=== PATIENT | female | born 1945 | race Caucasian/White ===

== ENCOUNTER → 2017-10-19 09:30 | Outpatient (CLI) | payer MEDICARE, BC, SELFPAY | PROVIDERS: Visit Provider Student in an Organized Health Care Education/Training Program | DX: M17.0 Bilateral primary osteoarthritis of knee (principal); S93.402A Sprain of unspecified ligament of left ankle, initial encounter; X50.1XXA Overexertion from prolonged static or awkward postures, initial encounter; Y93.01 Activity, walking, marching and hiking | CPT/HCPCS: 99213 ==

== ENCOUNTER 2017-11-30 15:24 | Outpatient (REF) | payer MEDICARE, BC, SELFPAY | END 2017-11-30 15:44 | LOC: NCHCN 15:24 | PROVIDERS: Visit Provider Family Medicine | DX: N39.0 Urinary tract infection, site not specified (principal) | CPT/HCPCS: 87077; 87086; 87186 ==

== ENCOUNTER → 2018-01-04 13:28 | Outpatient (BNVA) | payer MEDICARE, BC, SELFPAY | PROVIDERS: Visit Provider Student in an Organized Health Care Education/Training Program | DX: M17.11 Unilateral primary osteoarthritis, right knee (principal); I10 Essential (primary) hypertension | CPT/HCPCS: 20610; 99214; J1040 ==

== ENCOUNTER → 2018-03-22 14:18 | Outpatient (BNVA) | payer OTHER, SELFPAY | PROVIDERS: Visit Provider Student in an Organized Health Care Education/Training Program | DX: M17.11 Unilateral primary osteoarthritis, right knee (principal); M25.561 Pain in right knee; G89.29 Other chronic pain; I10 Essential (primary) hypertension | CPT/HCPCS: 99212; 99213 ==

== ENCOUNTER 2018-06-07 09:18 | Outpatient (REF) | payer OTHER, SELFPAY ==
[2018-06-07 14:20] LABS: Cholesterol 131 mg/dL (50-200); Glucose 113 mg/dL (70-100); HDL Cholesterol 41 mg/dL (40-60); LDL CHOLESTEROL 47 mg/dL (<100); Triglyceride 132 mg/dL (30-150)
== END 2018-06-07 09:38 ==
LOC: NCHCN 09:18
PROVIDERS: PCP Family Medicine; Visit Provider Family Medicine
DX: I10 Essential (primary) hypertension (principal); Z13.1 Encounter for screening for diabetes mellitus; Z13.6 Encounter for screening for cardiovascular disorders
CPT/HCPCS: 80061; 82947; 83721

== ENCOUNTER 2018-06-21 01:16 | Outpatient (CLI) | payer OTHER, SELFPAY ==
--- NOTE | 2018-06-21 11:32 | DI.MAMMO_ITS ---
SYMPTOM/DIAGNOSIS: SCREENING, Z12.31 MAMMOGRAMS: Mammograms were interpreted according to the usual protocol including computer analysis with CAD system, tomosynthesis and C view imaging. Comparison is made with prior examinations. Breast density, Category B. No suspicious masses or microcalcifications are seen. There is no definite evidence of malignancy. IMPRESSION: Negative mammogram. Routine screening is recommended. Category 1. MQSA ASSESSMENT OF FINDINGS: Negative. Category 1. Patient will receive a letter notifying them of these results. BI-RADS category B. There are scattered areas of fibroglandular density.
== END 2018-06-21 01:36 ==
PROVIDERS: PCP Family Medicine; Visit Provider Family Medicine
DX: Z12.31 Encounter for screening mammogram for malignant neoplasm of breast (principal)
CPT/HCPCS: 77063; 77067

== ENCOUNTER 2018-08-02 15:01 | Outpatient (CLI) | payer OTHER, BC, SELFPAY ==
--- NOTE | 2018-08-02 14:54 | DI.RAD_ITS ---
SYMPTOM/DIAGNOSIS: MEDIAL LEFT ANKLE PAIN LEFT ANKLE: Three views. No bone or joint abnormality is identified. There is a spur at the plantar surface of the calcaneus. Soft tissues are grossly unremarkable. IMPRESSION: No acute abnormality.
== END 2018-08-02 15:21 ==
PROVIDERS: PCP Family Medicine; Visit Provider Student in an Organized Health Care Education/Training Program
DX: M25.572 Pain in left ankle and joints of left foot (principal); S93.422A Sprain of deltoid ligament of left ankle, initial encounter; I10 Essential (primary) hypertension; X50.9XXA Other and unspecified overexertion or strenuous movements or postures, initial encounter
CPT/HCPCS: 99214; 73610

== ENCOUNTER 2018-08-11 00:32 | Outpatient (CLI) | payer OTHER, BC, SELFPAY ==
--- NOTE | 2018-08-11 14:58 | DI.MRI_ITS ---
SYMPTOM/DIAGNOSIS: LT ANKLE SPRAIN MRI LEFT ANKLE: The anterior and posterior talofibular ligaments are intact. The posterior tibiofibular ligament is also intact. There is no evidence of a calcaneofibular tear. Note is made of mild increased signal along the fibers of the deltoid ligament suggesting a mild sprain. The superficial fibers are intact. The spring ligament is intact. The Achilles tendon is intact. The flexor tendons are unremarkable. The extensor tendons are normal. The peroneal tendons are intact. The tibialis anterior is unremarkable. The tibialis posterior has a small quantity of fluid posterior and flexor digitorum longus tendon sheaths. The tendons themselves appear intact. The musculature is unremarkable. There is no joint effusion. The sinus tarsi is well maintained. The tarsal tunnel is intact. The plantar fascia reveals a small plantar calcaneal enthesophyte. The plantar fascia is unremarkable. Note is made of mild patchy focal marrow edema and cystic change in the navicular and middle and lateral cuneiforms as well as the bases of the second through fourth metatarsals likely on a degenerative basis. There is mild osteophyte formation in some of the tarsal and metatarsal joints Mild subcutaneous edema is noted medially over the malleolus. SUMMARY: Mild subcutaneous edema is noted over the medial malleolus. Note is made of a small fluid collection in the tibialis posterior and in the flexor digitorum longus tendon sheaths suggesting tenosynovitis. The tendons are intact. There is a mild sprain of the deep fibers of the deltoid ligament. Degenerative changes are noted as described above.
--- NOTE | 2018-08-11 16:08 | DI.VRAD_ITS ---
EXAM: MR Left Lower Extremity Without Contrast, Ankle EXAM DATE/TIME: 08/11/2018 2:51 PM CLINICAL HISTORY: 72 years old, female; Patient HX: Left ankle sprain. Rolled ankle, pain medial. TECHNIQUE: Imaging protocol: MR of the Left ankle without contrast. COMPARISON: CR XR ANKLE LT COMPLETE 08/02/2018 3:04 PM FINDINGS: LIGAMENTS: Anterior talofibular: Unremarkable. No tear. Posterior talofibular: Unremarkable. No tear. Anterior tibiofibular: Unremarkable. No tear. Posterior tibiofibular: Unremarkable. No tear. Calcaneofibular: Unremarkable. No tear. Deltoid: There is mild increased signal along the fibers of the deep portion of the deltoid ligament, suggesting mild sprain. The superficial fibers appear intact. Spring: Unremarkable. No tear. TENDONS: Achilles: Unremarkable. No tear. Flexors: No tear. Extensors: Unremarkable. No tear. Peroneal: Unremarkable. No tear. Tibialis anterior: Unremarkable. No tear. Tibialis posterior: Small fluid is present in the tibialis posterior and flexor digitorum longus tendon sheaths. The tendons themselves are intact. Muscles: Unremarkable. Fluid: No joint effusion. Sinus tarsi: Unremarkable. Tarsal tunnel: Unremarkable. Plantar fascia: A small plantar calcaneal enthesophyte is again present. The plantar fascia appears unremarkable. Cartilage: Unremarkable. Bones/joints: Mild patchy foci of marrow edema and cystic change present in the navicular and middle and lateral cuneiforms, as well as at the bases of the second and fourth metatarsals, likely degenerative. Mild osteophyte formation is present about some tarsometatarsal joints. Soft tissues: There is mild subcutaneous edema medially over the malleolus. IMPRESSION: 1. Mild subcutaneous edema over the medial malleolus. 2. Small fluid in the tibialis posterior flexor digitorum longus tendon sheaths, suggesting tenosynovitis, with the tendons intact. 3. Mild sprain of the deep fibers of the deltoid ligament. 4. Degenerative changes as described. Dictated and Authenticated by: Red Sullivan MD. Ordering:MEJIA Aguilar MD
== END 2018-08-11 00:52 ==
PROVIDERS: PCP Family Medicine; Visit Provider Student in an Organized Health Care Education/Training Program
DX: S93.402A Sprain of unspecified ligament of left ankle, initial encounter (principal); M77.32 Calcaneal spur, left foot; R60.0 Localized edema; M65.872 Other synovitis and tenosynovitis, left ankle and foot
CPT/HCPCS: 73721

== ENCOUNTER → 2018-08-16 09:58 | Outpatient (BNVA) | payer OTHER, SELFPAY | PROVIDERS: PCP Family Medicine; Referring Provider Family Medicine; Visit Provider Student in an Organized Health Care Education/Training Program | DX: S93.422A Sprain of deltoid ligament of left ankle, initial encounter (principal); M17.11 Unilateral primary osteoarthritis, right knee; M76.822 Posterior tibial tendinitis, left leg | CPT/HCPCS: 99213 ==

== ENCOUNTER 2018-11-25 10:41 | Outpatient (REF) | payer OTHER, SELFPAY ==
[2018-11-25 22:30] LABS: Anion Gap 8.6 mmol/L (3-11); BUN 24 mg/dL (7-18); CO2 27.4 mmol/L (21.0-32.0); CREATININE 0.96 mg/dL (0.55-1.02); Calcium 8.9 mg/dL (8.5-10.1); Chloride 102 mmol/L (98-107); Estimated GFR 57.29 (mL/min/1.73m2); Glucose 113 mg/dL (70-100); Potassium 4.6 mmol/L (3.5-5.1); Sodium 138 mmol/L (136-145)
== END 2018-11-25 11:01 ==
LOC: NCHCO 10:41
PROVIDERS: PCP Family Medicine; Visit Provider Internal Medicine
DX: I10 Essential (primary) hypertension (principal); E78.5 Hyperlipidemia, unspecified
CPT/HCPCS: 80048

== ENCOUNTER 2019-09-13 07:37 | Outpatient (CLI) | payer OTHER, SELFPAY ==
[2019-09-15 08:00] LABS: COVID-19 RT-PCR Result NEGATIVE (Negative)
== END 2019-09-13 07:57 ==
PROVIDERS: Student in an Organized Health Care Education/Training Program; PCP Family Medicine; Visit Provider Podiatrist
DX: M17.11 Unilateral primary osteoarthritis, right knee (principal); Z01.818 Encounter for other preprocedural examination
CPT/HCPCS: U0003

== ENCOUNTER 2019-09-16 07:30 | Day surgery (SDC) | payer OTHER, SELFPAY ==
--- NOTE | 2019-09-16 07:23 | W.PM.HP.N ---
Date of service: 09/16/19 Time of Service: 07:24 History of Present Illness History of Present Illness Chief Complaint: Symptomatic left bunion deformity Narrative: 73-year-old female with increasing pain associated with a left bunion deformity that is no longer amenable to palliative touch. Shoe gear, ambulation and daily activities aggravate the bunion and is reached a point she is seeking surgical correction. [facility] Medical History History of neck pain (Acute) Hx of fibrocystic disease of breast (Acute) Hypertension (Chronic) Surgical History History of carpal tunnel release of both wrists (Acute) History of repair of hiatal hernia (Acute) Hx of colonoscopy (Chronic) Hx of hysterectomy (Chronic) Social History Smoking/Tobacco Use Status: Never Alcohol Intake: current Alcohol Intake frequency: holidays/special occasions only Drug use: Never Substance use type: does not use Do you feel safe at home: Yes Meds Home Medications and Allergies Home Medications Medication Instructions Recorded Confirmed Type amitriptyline 10 mg PO HS 07/16/12 09/13/19 History calcium carbonate-vitamin D3 1 ea PO DAILY 07/23/12 09/13/19 History multivitamin with iron-mineral 1 ea PO DAILY 07/23/12 09/13/19 History [Compete] Atorvastatin Calcium 20 mg PO HS tab-cap 08/31/17 09/13/19 History lisinopril 40 mg PO DAILY tab-cap 08/31/17 09/13/19 History metoprolol tartrate 25 mg PO DAILY tab-cap 08/31/17 09/13/19 History meloxicam 7.5 mg tablet 7.5 mg PO BID #60 tab 05/11/19 09/13/19 Rx nitroglycerin [Nitrostat] 0.4 mg SUBLINGUAL Q5-15M PRN 09/13/19 09/13/19 History spironolactone 25 mg PO DAILY 09/13/19 09/13/19 History Allergies Allergy/AdvReac Type Severity Reaction Status Date / Time Penicillins Allergy Severe Anaphylaxsi Unverified 09/13/19 14:34 s Sulfa (Sulfonamide Allergy Intermediate Hives Unverified 09/13/19 14:34 Antibiotics) Exam Narrative Exam Narrative: 73-year-old white female looking her stated age in no acute distress. Head is normocephalic, eyes PERRLA, hearing is adequate. Uvula is midline airway looks assessable no suspicious oral lesions were noted. Heart had regular rate and rhythm without gallops rubs or murmurs. Lung powers were clear. Abdomen was soft. Bowel sounds x4. Peripheral pulses are manually palpable at the ankles minus 2 out of 4. Capillary fill is under 3 seconds to all toes. Calves were soft to palpation no findings of DVT. Moderate HAV deformity is appreciated without crepitance. Dorsal extension was slightly limited at end range of motion. Sesamoids were nontender to palpation. A large medial bump is noted with periarticular tenderness. No crepitance was observed. Remaining exam was otherwise grossly benign at this time. IMPression: Symptomatic left HAV deformity. Plan: And is being brought to the OR for surgical reduction of her left bunion deformity. She understands she will have a osteotomy that potential complications include pain, scarring, infection, stiffness of the joint, nonunion, malunion, delayed union, problems with the hardware potentially requiring removal. Revisional procedures were discussed all questions were answered. No promises made to final outcome of procedure. Informed consent has been obtained. COVID-19 Screening Have you,or household,traveled outside [place] in last 14 days?: No Had IN PERSON contact w/suspected or confirmed C-19 person: No
[2019-09-16 07:45] VITALS: BP 131/86; PULSE 80; RESP 16; TEMP 36.6; O2SAT 100
[2019-09-16] MEDS: Lactated Ringers 1,000 ML 80 ML IV (08:10)
[2019-09-16] MEDS: CLINDAMYCIN 600 MG/50 ML BAG 100 MG IVPB (08:52)
[2019-09-16] MEDS: Lidocaine 1% Pres-Free 5 ML VIAL (09:12)
[2019-09-16] MEDS: Bupivacaine 0.5% Pres-Free 30 ML VIAL (09:12)
[2019-09-16] MEDS: Dexamethasone 4 MG/ML VIAL (09:52)
[2019-09-16 10:10] VITALS: BP 92/55; PULSE 75; RESP 16; TEMP 35.8; O2SAT 95
--- NOTE | 2019-09-16 10:10 | W.PM.DSUDISC ---
Discharge Plan Disposition Patient Disposition: HOME Condition: Good Discharge Details Reason For Visit: EUGENIA Attending Provider: Juan Lamb Primary Care Provider: Jackie Guerrero Home Meds and New Rx's Prescriptions: New ibuprofen 600 mg tablet 600 mg PO Q6H PRN (Reason: pain and inflamation) Qty: 40 RF: 0 hydrocodone-acetaminophen [[place]] 5-325 mg tablet 1 tab PO Q6H PRN (Reason: pain) Qty: 7 RF: 0 Continued Atorvastatin Calcium 20 MG tablet 20 mg PO HS RF: 0 lisinopril 40 MG tablet 40 mg PO DAILY RF: 0 metoprolol tartrate 25 MG tablet 25 mg PO DAILY RF: 0 meloxicam 7.5 mg tablet 7.5 mg PO BID Qty: 60 RF: 6 amitriptyline 10 MG tablet 10 mg PO HS RF: 0 Compete 1 EACH tablet 1 ea PO DAILY RF: 0 calcium carbonate-vitamin D3 1 EACH tablet 1 ea PO DAILY RF: 0 nitroglycerin [Nitrostat] 0.4 mg Tablet, Sublingual 0.4 mg SUBLINGUAL Q5-15M PRNRF: 0 spironolactone 25 mg Tablet 25 mg PO DAILY RF: 0 Discharge Instructions Activity:: Elevate Remove Dressings/Wound Care:: Do Not Remove Shower/Bathe:: Cover Diet:: Normal Diet Discharge Orders Discharge Orders: Discharge Order (Routine); Ordered 09/16/19 Ordered By: Juan Lamb DS: Diagnosis Discharge Diagnosis (1) Hallux valgus (acquired), right foot: Status: Acute
--- NOTE | 2019-09-16 10:14 | ROE_ITS ---
Date of service: 09/16/19 Time of Service: 10:14 Operative Note Operative Note DATE OF PROCEDURE: 09/16/19 PRE-OP DIAGNOSIS: Hallux valgus left foot POST-OP DIAGNOSIS: same PROCEDURE: Saeid type bunionectomy with internal Synthes screw fixation 2.7 millimeter screws x2, left foot SURGEON: Juan Lamb ANESTHESIA: GETA ESTIMATED BLOOD LOSS: 1 PATHOLOGY: none sent TOURNIQUET TIME: 50 COMPLICATIONS: None Patient was transported to: same day Patient's condition: stable Implants: Synthes screws cortical times two 2.7 Indications: 73-year-old female with progressive pain associated with a left bunion deformity which is become increasingly painful having difficulty getting into shoes and performing daily activities without pain. Nonoperative treatments have failed to provide sufficient relief of symptoms. She is aware of potential risk and complications of surgery pertaining to pain, scarring, infection, overcorrection, under correction, nonunion, malunion, delayed union, symptomatic hardware all potentially requiring surgical intervention and corrective procedures. Informed consents been obtained no promises made to the final outcome of surgery Procedure Description: Mei is brought to the operative suite placed in the supine position with the left foot prepped and draped in the usual sterile podiatric fashion. Anesthesia being achieved attention was directed to the left foot which was exsanguinated with a well-padded ankle tourniquet inflated 250 mmHg. Attention was directed to the first MPJ dorsal aspect where a 5 cm incision was placed centrally over the joint. The incision was deepened in controlled depth fashion hemostasis being acquired with electrocautery. Dissection was carried down to the joint capsule. Was immediately evident that there was contracture along the lateral side of the joint. A lateral capsu lotomy, adductor tendon release was performed. Good relaxation was appreciated. Attention was now directed medially where an inverted L capsulotomy was performed. The joint capsule was opened and the first metatarsal head delivered into the wound. Hypertrophy along the medial aspect of the first metatarsal head was appreciated partial erosion through the articular surface was noted along the medial inferior aspect of the first metatarsal head and adjacent location on the base of the proximal phalanx. With power instrumentation the medial hyperostosis was resected. An offset V osteotomy was then performed and the capital fragment of the first metatarsal head translocated laterally and impacted. Fixation was achieved with Synthes 2.7 cortical screws 16 mm and 14 mm in length. The medial shelf was resected all rough and bony edges rasped smooth. With a 0.35 K wire the degenerated portion of the articular joint surfaces was microfractured. Copious irrigation was performed. The joint capsule was repaired with simple interrupted suture 3-0 Vicryl with a medial capsulorrhaphy being performed. The subcutaneous layer was repaired with simple interrupted suture 3-0 Vicryl subcuticular layer was repaired with simple interrupted suture of 4-0 Vicryl and the skin was coapted with subcuticular running stitch of 4-0 Monocryl Dictated with Giovanny naturally speaking not reviewed for accuracy
[2019-09-16 10:40] VITALS: BP 113/57; PULSE 67; RESP 16; TEMP 35.6; O2SAT 98
== END 2019-09-16 15:00 | disposition home or self-care (01) ==
PROVIDERS: PCP Family Medicine; Visit Provider Podiatrist
PROC: (CPT 28292; principal; 2019-09-16 08:30)
DX: M20.11 Hallux valgus (acquired), right foot (principal); M21.612 Bunion of left foot
CPT/HCPCS: 28296; 99220; J1100; J1885; J2405

== ENCOUNTER 2019-11-21 15:46 | Emergency (ER) | payer OTHER, SELFPAY ==
[2019-11-21 16:14] VITALS: BP 146/80; PULSE 69; RESP 16; TEMP 37; O2SAT 99
--- NOTE | 2019-11-21 16:30 | DI.CT_ITS ---
EXAM: CT HEAD FACIAL WO CLINICAL HISTORY: head trauma. TECHNIQUE: Imaging Protocol: Axial computed tomography images with coronal and sagittal reformatted images were created and reviewed COMPARISON: No exams were available for comparison FINDINGS: Noncontrast head CT: Ventricles and Extra axial spaces: Normal in size and morphology for the patient's age. Hemorrhage: None. Cerebral parenchyma: Mild atrophy. No mass or infarct. Midline shift: None. Brainstem/Cerebellum: Normal. Calvarium: Normal. Visualized Paranasal sinuses/Mastoids: Clear. Facial CT: There is no evidence facial fracture. The globes appear intact. The sinuses are clear. The nasal s eptum is incidentally noted to be deviated toward the left. The nasal cavity appears clear. IMPRESSION: No acute abnormality. RADIATION DOSE DELIVERED: 1,274.34mGy.cm Total DLP DATA REPOSITORY: All CT scans at this facility are submitted to the National Radiology Data Registry (NRDR) Dose Index Registry (DIR) with the [employer] (ACR). RADIATION OPTIMIZATION: All CT scans at this facility use at least one of these dose optimization te chniques: automated exposure control; mA and/or kV adjustment per patient size (includes targeted exa ms where dose is matched to clinical indication); or iterative reconstruction.
--- NOTE | 2019-11-21 16:34 | ED.GENADUL_ITS ---
Discharge Plan Disposition Patient Disposition: HOME Condition: Stable Discharge Details Clinical Impression: Blunt head injury, Concussion Primary Care Provider: Jackie Guerrero ED Provider: Red Patricia Home Meds and New Rx's Prescriptions: Continued Atorvastatin Calcium 20 MG tablet 20 mg PO HS RF: 0 lisinopril 40 MG tablet 40 mg PO DAILY RF: 0 metoprolol tartrate 25 MG tablet 25 mg PO DAILY RF: 0 meloxicam 7.5 mg tablet 7.5 mg PO BID Qty: 60 RF: 6 amitriptyline 10 MG tablet 10 mg PO HS RF: 0 Compete 1 EACH tablet 1 ea PO DAILY RF: 0 calcium carbonate-vitamin D3 1 EACH tablet 1 ea PO DAILY RF: 0 nitroglycerin [Nitrostat] 0.4 mg Tablet, Sublingual 0.4 mg SUBLINGUAL Q5-15M PRNRF: 0 spironolactone 25 mg Tablet 25 mg PO DAILY RF: 0 ibuprofen 600 mg tablet 600 mg PO Q6H PRN (Reason: pain and inflamation) Qty: 40 RF: 0 hydrocodone-acetaminophen [[place]] 5-325 mg tablet 1 tab PO Q6H PRN (Reason: pain) Qty: 7 RF: 0 Discharge Instructions Instructions: Concussion (ED) Additional Instructions: follow up with your primary care provider if symptoms continue in a week if you have severe worsening pain, new pain such as abdominal pain or feel more ill return to the emergency department Medical Decision Making 73 yo female comes in mild intermittent dizziness when standing. 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 She did not lose consciousness and no vomit since and denies any head pain, neck pain, chest pain, abdominal pain, extremity pain or back pain. She does have some bruising aroud the lower orbits, perrl, eomi, no hemotympanum. Steady unassisted gait, gcs 15, no midline c spine pain even with palpation and full rom. Suspect concussion but given the bruising under eyes will obtain ct imaging to evaluate for tbi and also skull fx. Differential Diagnosis Differential Diagnosis: concussion, tbi, facial fx Imaging Data Radiologic Study: Attestation: I personally reviewed and interpreted this imaging study as follows: Imaging: CT Scan Radiologist's impression: no acute findings HPI General Mode of arrival: ambulatory . Date/Time Provider Initiated Documentation: 11/21/19 16:30 . Limitations to Documentation: no limitations . Information obtained by: patient . History of Present Illness 73 year old F presents to the emergency department with the chief complaint of dizziness, described as mild, No relieving factors improve symptom(s), No exacerbating factors reported . Patient did receive the following treatments prior to arrival, none Related Data Home Medications Medication Instructions Recorded Confirmed amitriptyline 10 mg PO HS 07/16/12 11/21/19 Compete 1 ea PO DAILY 07/23/12 11/21/19 calcium carbonate-vitamin D3 1 ea PO DAILY 07/23/12 11/21/19 Atorvastatin Calcium 20 mg PO HS tab-cap 08/31/17 11/21/19 lisinopril 40 mg PO DAILY tab-cap 08/31/17 11/21/19 metoprolol tartrate 25 mg PO DAILY tab-cap 08/31/17 11/21/19 meloxicam 7.5 mg tablet 7.5 mg PO BID #60 tab 05/11/19 11/21/19 nitroglycerin [Nitrostat] 0.4 mg SUBLINGUAL Q5-15M PRN 09/13/19 11/21/19 spironolactone 25 mg PO DAILY 09/13/19 11/21/19 hydrocodone-acetaminophen [[place]] 1 tab PO Q6H PRN #7 tab 09/16/19 11/21/19 ibuprofen 600 mg PO Q6H PRN #40 tab 09/16/19 11/21/19 Previous Rx's Medication Instructions Recorded meloxicam 7.5 mg tablet 7.5 mg PO BID #60 tab 05/11/19 hydrocodone-acetaminophen [[place]] 1 tab PO Q6H PRN #7 tab 09/16/19 ibuprofen 600 mg PO Q6H PRN #40 tab 09/16/19 Allergies Allergy/AdvReac Type Severity Reaction Status Date / Time Penicillins Allergy Severe Anaphylaxsi Unverified 11/21/19 16:19 s Sulfa (Sulfonamide Allergy Intermediate Hives Unverified 11/21/19 16:19 Antibiotics) General Stated Complaint: HeadInjury LYDIA: 2 Review of Systems All systems reviewed & are unremarkable except as noted in HPI and below Constitutional Constitutional: Denies chills, Denies fever(s) and Denies weakness Cardiovascular Cardiovascular: Denies chest pain and Denies dyspnea Respiratory Respiratory: Denies cough and Denies dyspnea Gastrointestinal Gastrointestinal: Denies abdominal pain, Denies nausea and Denies vomiting Musculoskeletal Musculoskeletal: Denies joint swelling Neurologic Neurologic: Denies weakness Psychiatric Psychiatric: Denies depression [facility] Medical History (Updated 11/21/19 @ 17:57 by Red Patricia MD) History of neck pain Hx of fibrocystic disease of breast Hypertension Surgical History History of carpal tunnel release of both wrists History of repair of hiatal hernia Hx of colonoscopy Hx of hysterectomy Social History Smoking/Tobacco Use Status: Never Alcohol Intake: current Alcohol Intake frequency: holidays/special occasions only Drug use: Never Substance use type: does not use Do you feel safe at home: Yes Do you feel safe in your relationship?: Yes Exam Const General: no acute distress Orientation: alert HENMT Head: no palpable skull fracture Ears: external ears normal General nose exam: external nose normal Mouth: moist mucous membranes Eyes General: appearance normal, both eyes and all related structures Neck Neck: normal visual inspection Resp Effort & Inspection: normal respiratory effort and able to speak in complete sentences Cardio Rate: regular rate Skin General skin exam: no rashes or lesions noted Neuro General: patient alert and patient oriented x3 Extrem General: normal to inspection Psych Mental Status: mental status grossly normal Course Vital Signs Vital signs: Vital Signs Temperature 37 C 11/21/19 16:14 Pulse 69 11/21/19 16:14 Respiratory Rate 16 11/21/19 16:14 Blood Pressure 146/80 H 11/21/19 16:14 Pulse Oximetry 99 11/21/19 16:14 Temperature 37 C 11/21/19 16:14 Temperature Source Skin 11/21/19 16:14 Pulse 69 11/21/19 16:14 Respiratory Rate 16 11/21/19 16:14 Respiratory Effort Non-Labored 11/21/19 16:14 Blood Pressure 146/80 H 11/21/19 16:14 Blood Pressure Position Sitting 11/21/19 16:14 Pulse Oximetry 99 11/21/19 16:14 Oxygen Delivery Method Room Air 11/21/19 16:14 Oxygen Flow Rate 0 11/21/19 16:14 Pain Level 7 11/21/19 16:14
--- NOTE | 2019-11-21 17:28 | DI.VRAD_ITS ---
PROCEDURE INFORMATION: Exam: CT Maxillofacial Without Contrast Exam date and time: 11/21/2019 5:12 PM Age: 73 years old Clinical indication: Injury or trauma; Fall; Blunt trauma (contusions or hematomas); Consciousness not specified; Initial encounter; Nose and orbit/periorbital; Bilateral; Injury date: Unknown TECHNIQUE: Imaging protocol: Computed tomography images of the face without contrast. Radiation optimization: All CT scans at this facility use at least one of these dose optimization techniques: automated exposure control; mA and/or kV adjustment per patient size (includes targeted exams where dose is matched to clinical indication); or iterative reconstruction. COMPARISON: No relevant prior studies available. FINDINGS: Orbits: Orbits are normal. Globes are unremarkable. Bones/joints: No acute fracture. Paranasal sinuses: Normal. No air-fluid levels. Soft tissues: Unremarkable. IMPRESSION: No acute findings. PROCEDURE INFORMATION: Exam: CT Head Without Contrast Exam date and time: 11/21/2019 5:12 PM Age: 73 years old Clinical indication: Injury or trauma; Fall; Blunt trauma (contusions or hematomas); Consciousness not specified; Initial encounter; Nose and orbit/periorbital; Bilateral; Injury date: Unknown TECHNIQUE: Imaging protocol: Computed tomography of the head without contrast. Radiation optimization: All CT scans at this facility use at least one of these dose optimization techniques: automated exposure control; mA and/or kV adjustment per patient size (includes targeted exams where dose is matched to clinical indication); or iterative reconstruction. COMPARISON: No relevant prior studies available. FINDINGS: Brain: Age related brain involution is present. No acute intracranial hemorrhage, mass effect, midline shift, or brain herniation. Diffuse subcortical and periventricular white matter hypodensities are most in favor with chronic small vessel disease. Cerebral ventricles: There is ex vacuo ventriculomegaly. Bones/joints: Unremarkable. No acute fracture. Paranasal sinuses: Visualized sinuses are unremarkable. No fluid levels. Mastoid air cells: Visualized mastoid air cells are well aerated. Orbits: Unremarkable. Vasculature: Intracranial atherosclerosis is present. Soft tissues: Unremarkable. IMPRESSION: Negative for acute intracranial pathology. Dictated and Authenticated by: Mariusz Frank MD. Ordering:GA Moon MD
[2019-11-21 17:58] VITALS: BP 154/73; PULSE 72; RESP 14; TEMP 36; O2SAT 100
== END 2019-11-21 18:10 | disposition home or self-care (01) ==
PROVIDERS: Emergency Provider Emergency Medicine; PCP Family Medicine
DX: S06.0X0A Concussion without loss of consciousness, initial encounter (principal); R42 Dizziness and giddiness; W20.8XXA Other cause of strike by thrown, projected or falling object, initial encounter; I10 Essential (primary) hypertension; S00.11XA Contusion of right eyelid and periocular area, initial encounter; S00.12XA Contusion of left eyelid and periocular area, initial encounter
CPT/HCPCS: 99284; 70450; 70486; 99285

== ENCOUNTER 2020-01-23 09:54 | Outpatient (REF) | payer OTHER, SELFPAY ==
[2020-01-23 20:52] LABS: HCT 36.2 % (36.0-46.0); HGB 11.7 g/dL (11.2-15.7); MCH 30.6 pg (27.0-33.0); MCHC 32.3 % (32.0-36.0); MCV 94.8 fL (80-95); MPV 11.8 fL (8.0-11.0); Platelet Count 225 10^3/uL (130-400); RBC 3.82 10^6/uL (3.93-5.22); RDW 12.1 % (11.7-14.6); RDW-SD 41.9 fL; WBC 6.35 10^3/uL (4.4-10.8)
[2020-01-23 21:18] LABS: Calculated LDL 57 mg/dL (<100); Cholesterol 134 mg/dL (<200); HDL Cholesterol 45 mg/dL (40-60); Triglyceride 160 mg/dL (<150)
== END 2020-01-23 10:14 ==
LOC: NCHCN 09:54
PROVIDERS: PCP Family Medicine; Visit Provider Family Medicine
DX: I10 Essential (primary) hypertension (principal); E78.5 Hyperlipidemia, unspecified
CPT/HCPCS: 80061; 85027

== ENCOUNTER 2020-03-26 11:27 | Outpatient (REF) | payer OTHER, SELFPAY ==
[2020-03-27 12:36] LABS: COVID-19 RT-PCR UVMMC Result Negative (Negative)
== END 2020-03-26 11:47 ==
LOC: NCHCN 11:27
PROVIDERS: PCP Family Medicine; Visit Provider Family Medicine
DX: Z20.822 Contact with and (suspected) exposure to COVID-19 (principal)
CPT/HCPCS: U0003

== ENCOUNTER 2020-04-09 00:53 | Outpatient (CLI) | payer OTHER, SELFPAY ==
--- NOTE | 2020-04-09 | DI.MAMMO_ITS ---
EXAM: MG MAMMO SCREENING CLINICAL HISTORY: SCREENING, Z12.31. TECHNIQUE: Bilateral full field digital CC and MLO mammographic images were obtained with 3D tomosyn thesis and utilizing computer aided detection (CAD). COMPARISON: Prior mammograms dating back to 2012, the most recent being May 2018. FINDINGS: There are no spiculated masses nor malignant appearing microcalcification groups. There is no signif icant architectural distortion nor skin thickening-retraction. IMPRESSION: No radiographic evidence of malignancy. BI-RADS Category 1 - Negative Breast Density - Category B - Scattered areas of fibroglandular density Breast density Category C or D implies that the patient has dense breast tissue. Dense breast tissue can make it harder to find cancer on a mammogram. Dense breast tissue is also associated with an incr eased risk of breast cancer. This information about the result of the mammogram report was provided to the patient to raise their awareness. Use this report when you speak with the patient about their risks for breast cancer, which includes their family history. At that time, you may recommend additional screening tests (Ultrasoun d or MRI) as these tests may add significant information. A negative radiographic report should not delay biopsy if a dominant or clinically suspicious mass is present. Up to ten percent of cancers are not identified on mammography. A negative report may reinforce clinical impression. Adenosis and dense breasts may obscure an underlying neoplasm. False positive reports average 6 to 10%. Patient will receive a letter notifying them of these results.
== END 2020-04-09 00:54 ==
LOC: DI 00:57
PROVIDERS: PCP Family Medicine; Visit Provider Family Medicine
DX: Z12.31 Encounter for screening mammogram for malignant neoplasm of breast (principal)
CPT/HCPCS: 77063; 77067

== ENCOUNTER 2020-09-26 21:45 | Outpatient (REF) | payer OTHER, SELFPAY ==
[2020-09-26 21:30] LABS: Abs Immature Grans 0.02 10^3/uL (0.0-0.06); Absolute Basophil Count 0.06 10^3/uL (0.0-0.2); Absolute Eosinophil Count 0.14 10^3/uL (0.0-0.7); Absolute Lymphocyte Count 2.13 10^3/uL (1.2-3.4); Absolute Monocyte Count 0.78 10^3/uL (0.1-0.8); Absolute Neutrophil Count 5.68 10^3/uL (1.2-6.7); Basophils % 0.7; Eosinophils % 1.6; HCT 37.3 % (36.0-46.0); HGB 11.9 g/dL (11.2-15.7); Immature Grans % 0.2; Lymphocytes % 24.2; MCHC 31.9 % (32.0-36.0); MPV 11.7 fL (8.0-11.0); Monocytes % 8.9; Neutrophils % 64.4; Nucleated RBC 0 %; Platelet Count 231 10^3/uL (130-400); RBC 3.97 10^6/uL (3.93-5.22); RDW 12.4 % (11.7-14.6); RDW-SD 43.4 fL; WBC 8.81 10^3/uL (4.4-10.8)
[2020-09-26 21:50] LABS: C-Reactive Protein 0.14 mg/dL (0.0-0.3); FREE T4 0.74 ng/dL (0.76-1.46); TSH 3.27 uIU/mL (0.36-3.74)
[2020-09-27 17:07] LABS: T3,Free 3.4 pg/mL (2.8-5.3)
== END 2020-09-26 21:46 | disposition home or self-care (01) ==
LOC: NCHCN 21:45
PROVIDERS: PCP Family Medicine; Visit Provider Family Medicine
DX: R53.83 Other fatigue (principal)
CPT/HCPCS: 84439; 84443; 84481; 85025; 86140

== ENCOUNTER 2020-10-08 14:41 | Outpatient (CLI) | payer OTHER, SELFPAY ==
--- NOTE | 2020-10-08 10:30 | DI.RAD_ITS ---
Exam(s) XR STANDING ALIGNMENT EXAM: XR STANDING ALIGNMENT CLINICAL HISTORY: eval R knee DJD, pre-surgical. TECHNIQUE: 2D digital imaging was performed. COMPARISON: No exams were available for comparison FINDINGS: There are advanced degenerative changes in both knees, slightly more prominent on the right side wher e there is almost [id number] apposition of the medial compartment. Chondrocalcinosis is noted in b oth the mediolateral compartments of both knees, slightly more prominent in the right knee. No osseo us lesions. Ankles appear unremarkable. A hips exhibit mild degenerative changes, slightly more so on the right side. There are no lytic nor blastic osseous lesions evident. IMPRESSION: DATA REPOSITORY: RADIATION DOSE DELIVERED:
--- NOTE | 2020-10-08 10:30 | DI.RAD_ITS ---
Exam(s) XR KNEE RT 1V EXAM: XR KNEE RT 1V CLINICAL HISTORY: f/u R knee DJD. TECHNIQUE: 2D digital imaging was performed. COMPARISON: CR LEFT KNEE COMPLETE W SUNRISE from 03/15/2008 FINDINGS: Standing weight-bearing AP view of the right knee reveals advanced narrowing of the medial compartmen t, almost [id number]. No prominent osteophytes but there is chondrocalcinosis evident. The calcif ication within the medial meniscus exhibits extrusion. That in the lateral compartment does not. IMPRESSION: DATA REPOSITORY: RADIATION DOSE DELIVERED:
== END 2020-10-08 14:42 | disposition home or self-care (01) ==
LOC: DIORS 14:41
PROVIDERS: PCP Family Medicine; Referring Provider Family Medicine; Visit Provider Student in an Organized Health Care Education/Training Program
DX: M17.11 Unilateral primary osteoarthritis, right knee (principal)
CPT/HCPCS: 99213; 73560; 77073

== ENCOUNTER 2020-10-15 17:58 | Outpatient (REF) | payer OTHER, SELFPAY ==
[2020-10-17 16:21] LABS: COVID-19 RT-PCR UVMMC Result Negative (Negative)
== END 2020-10-15 17:59 | disposition home or self-care (01) ==
LOC: NCHCN 17:58
PROVIDERS: PCP Family Medicine; Visit Provider Family Medicine
DX: Z20.822 Contact with and (suspected) exposure to COVID-19 (principal); J11.1 Influenza due to unidentified influenza virus with other respiratory manifestations
CPT/HCPCS: U0003

== ENCOUNTER 2020-11-26 17:47 | Outpatient (REF) | payer OTHER, SELFPAY ==
[2020-11-26 15:02] LABS: TSH (W/Ref FT4) 1.35 uIU/mL (0.36-3.74)
== END 2020-11-26 17:48 | disposition home or self-care (01) ==
LOC: NCHCN 17:47
PROVIDERS: PCP Family Medicine; Visit Provider Family Medicine
DX: R53.83 Other fatigue (principal)
CPT/HCPCS: 84443

== ENCOUNTER 2020-12-27 10:59 | Outpatient (REF) | payer OTHER, SELFPAY ==
[2020-12-27 14:20] LABS: TSH (W/Ref FT4) 1.61 uIU/mL (0.36-3.74)
== END 2020-12-27 11:00 | disposition home or self-care (01) ==
LOC: NCHCN 10:59
PROVIDERS: PCP Family Medicine; Visit Provider Family Medicine
DX: E03.9 Hypothyroidism, unspecified (principal)
CPT/HCPCS: 84443

== ENCOUNTER → 2021-01-10 10:45 | Outpatient (BNVA) | payer OTHER, SELFPAY | PROVIDERS: PCP Family Medicine; Referring Provider Family Medicine; Visit Provider Physician Assistant | DX: M17.11 Unilateral primary osteoarthritis, right knee (principal) | CPT/HCPCS: 20610; J1040 ==

== ENCOUNTER 2021-10-14 15:43 | Outpatient (CLI) | payer OTHER, SELFPAY ==
--- NOTE | 2021-10-14 15:30 | DI.RAD_ITS ---
Exam(s) XR KNEE RT 2V AP,LAT EXAM: XR KNEE RT 2V AP,LAT CLINICAL HISTORY: right knee pain. TECHNIQUE: 2D digital imaging was performed of the right knee. Two views obtained. AP, lateral, Elandra chant and PA tunnel views were obtained. COMPARISON: CR XR KNEE LT 2V AP,LAT from 10/14/2021 FINDINGS: BONES: No acute fracture is present. No bony destructive lesion is seen. JOINTS: Marked degenerative changes are seen in the right knee with joint space narrowing, subchondra l sclerosis and periarticular spurring. Chondrocalcinosis is seen in the femoral tibial joint. No j oint effusion is seen. SOFT TISSUE: Normal. IMPRESSION: Osteoarthritis of the right knee. DATA REPOSITORY: RADIATION DOSE DELIVERED:
--- NOTE | 2021-10-14 15:30 | DI.RAD_ITS ---
Exam(s) XR KNEE LT 2V AP,LAT EXAM: XR KNEE LT 2V AP,LAT CLINICAL HISTORY: left knee pain. TECHNIQUE: 2D digital imaging was performed of the left knee. Two images were obtained. AP and PA views were obtained. COMPARISON: CR RIGHT KNEE 3 VIEWS from 07/23/2017 FINDINGS: BONES: No acute fracture is present. No bony destructive lesion is seen. JOINTS: There are marked degenerative changes seen in the left knee with joint space narrowing, chond rocalcinosis and periarticular spurring. No joint effusion is seen. SOFT TISSUE: Normal. IMPRESSION: Osteoarthritis of the left knee. DATA REPOSITORY: RADIATION DOSE DELIVERED:
== END 2021-10-14 15:44 | disposition home or self-care (01) ==
LOC: DIORS 15:44
PROVIDERS: PCP Family Medicine; Visit Provider Physician Assistant
DX: M17.12 Unilateral primary osteoarthritis, left knee (principal); M17.11 Unilateral primary osteoarthritis, right knee
CPT/HCPCS: 99214; 73560

== ENCOUNTER 2021-12-02 02:49 | Outpatient (CLI) | payer OTHER, SELFPAY ==
[2021-12-02 11:25] LABS: HCT 37.3 % (36.0-46.0); HGB 12.1 g/dL (11.2-15.7); MCH 30.1 pg (27.0-33.0); MCHC 32.4 % (32.0-36.0); MCV 93 fL (80-95); MPV 10.6 fL (8.0-11.0); Platelet Count 229 10^3/uL (130-400); RBC 4.02 10^6/uL (3.93-5.22); RDW 12.3 % (11.7-14.6); RDW-SD 42.1 fL; WBC 7.22 10^3/uL (4.4-10.8)
[2021-12-02 12:20] LABS: Anion Gap 9.2 mmol/L (3-11); BUN 31 mg/dL (7-18); CO2 25.8 mmol/L (21.0-32.0); CREATININE 1.2 mg/dL (0.55-1.02); Calcium 10.4 mg/dL (8.5-10.1); Chloride 103 mmol/L (98-107); Glucose 125 mg/dL (74-106); Potassium 5.7 mmol/L (3.5-5.1); Sodium 138 mmol/L (136-145)
== END 2021-12-02 02:50 | disposition home or self-care (01) ==
LOC: LBO 02:49
PROVIDERS: PCP Family Medicine; Visit Provider Student in an Organized Health Care Education/Training Program
DX: M25.561 Pain in right knee (principal); M17.11 Unilateral primary osteoarthritis, right knee; Z01.818 Encounter for other preprocedural examination; Z01.812 Encounter for preprocedural laboratory examination
CPT/HCPCS: 36415; 80048; 85027

== ENCOUNTER 2021-12-06 01:48 | Outpatient (CLI) | payer OTHER, SELFPAY ==
[2021-12-06 13:41] LABS: Anion Gap 6.6 mmol/L (3-11); BUN 24 mg/dL (7-18); CO2 26.4 mmol/L (21.0-32.0); CREATININE 1.4 mg/dL (0.55-1.02); Calcium 10.1 mg/dL (8.5-10.1); Chloride 102 mmol/L (98-107); Estimated GFR 39.48 (mL/min/1.73m2); Glucose 112 mg/dL (74-106); Potassium 4.7 mmol/L (3.5-5.1); Sodium 135 mmol/L (136-145)
== END 2021-12-06 01:49 | disposition home or self-care (01) ==
LOC: LBO 01:48
PROVIDERS: PCP Family Medicine; Visit Provider Student in an Organized Health Care Education/Training Program
DX: M17.11 Unilateral primary osteoarthritis, right knee (principal)
CPT/HCPCS: 36415; 80048

== ENCOUNTER 2021-12-11 06:00 | Day surgery (SDC) | payer OTHER, SELFPAY ==
[2021-12-11] VITALS (15 sets, daily range): BP systolic 72–138; BP diastolic 35–79; PULSE 48–80; RESP 14–18; TEMP 36.2–36.9; O2SAT 95–100; BMI 25.5
--- NOTE | 2021-12-11 06:44 | W.ANESPRE ---
General Info Date of Service Date Performed: 12/11/21 Height: 5 ft 1.5 in Weight: 62.4 kg Body Mass Index (BMI): 25.5 Surgical Procedure: Operation Date: 12/11/21 07:40 Proposed Procedure Side Surgeon p Knee Total Arthroplasty Right Jeff Price MD Meds Allergies and Home Medications Allergies Allergy/AdvReac Type Severity Reaction Status Date / Time Penicillins Allergy Severe Anaphylaxsi Verified 12/11/21 06:16 s Sulfa (Sulfonamide Allergy Intermediate Hives Verified 12/11/21 06:16 Antibiotics) Home Medication Medication Instructions Recorded amitriptyline 10 mg tablet 10 mg PO HS 07/16/12 calcium carbonate 1,000 mg-vitamin 1 ea PO DAILY 07/23/12 D3 20 mcg (800 unit) tablet Atorvastatin Calcium 20 mg PO HS 08/31/17 lisinopril 40 mg tablet 40 mg PO DAILY 08/31/17 metoprolol tartrate 25 mg tablet 25 mg PO DAILY 08/31/17 nitroglycerin 0.4 mg sublingual 0.4 mg sublingual Q5-15M PRN 09/13/19 tablet (Nitrostat) spironolactone 25 mg tablet 25 mg PO DAILY 09/13/19 glucosamine sulf dipot 1 cap PO DAILY 12/11/20 chlr,msm,chond 550 mg-C 30 mg-nichelle 1 mg capsule (Glucosamine Chondroitin) levothyroxine 25 mcg capsule 25 mcg PO DAILY 12/11/20 acetaminophen 500 mg tablet 1,000 mg PO Q8H PRN pain #90 tabs 12/11/21 aspirin 81 mg tablet,delayed 81 mg PO BID 30 days #60 tabs 12/11/21 release dexamethasone 4 mg tablet 4 mg PO DAILY #2 tabs 12/11/21 docusate sodium 100 mg capsule 100 mg PO BID #30 caps 12/11/21 (Colace) gabapentin 300 mg capsule 300 mg PO QHS #14 caps 12/11/21 meloxicam 15 mg tablet 15 mg PO DAILY #30 tabs 12/11/21 multivit with 1 tab PO DAILY 12/11/21 aouldysp-qabw-WL-lutein 8 mg iron-400 mcg-300 mcg tablet (Centrum Silver Women) oxycodone 5 mg tablet 5 mg PO Q4H PRN severe 12/11/21 post-operative pain #18 tabs pantoprazole 40 mg tablet,delayed 40 mg PO DAILY 30 days #30 tabs 12/11/21 release Current Visit Medications: Current Medications Generic Name Dose Route Start Last Admin Trade Name James PRN Reason Stop Dose Admin Acetaminophen 1,000 mg 12/11/21 06:00 Acetaminophen 500 Mg Tab PO PREOP ZARA Celecoxib 400 mg 12/11/21 06:00 Celecoxib 200 Mg Cap PO PREOP ZARA Gabapentin 300 mg 12/11/21 06:00 Gabapentin 300 Mg Cap PO PREOP ZARA Ringer's Solution 1,000 mls @ 80 mls/hr 12/11/21 06:00 IV 01/09/22 23:59 INFUSION ZARA Cefazolin Sodium/Dextrose 2 gm in 50 mls @ 100 mls/hr 12/11/21 06:00 Ancef Duplex IVPB 01/09/22 23:59 PREOP ZARA Tranexamic Acid 1,000 mg/ 60 mls @ 360 mls/hr 12/11/21 06:00 Sodium Chloride IVPB DIRECTED ZARA Tranexamic Acid 1,000 mg/ 60 mls @ 360 mls/hr 12/11/21 06:00 Sodium Chloride IVPB PREOP [facility] IV Miscellaneous Supplies 1 each 12/11/21 06:00 Iv Access IV 01/09/22 23:59 DIRECTED ZARA Sodium Chloride 0 ml 12/11/21 06:00 Normal Saline Flush 10 Ml Syr IV 01/09/22 23:59 PRN PRN Sodium Chloride 0 ml 12/11/21 06:00 Normal Saline 10 Ml Vial IJ 01/09/22 23:59 DIRECTED PRN Sterile Water 0 ml 12/11/21 06:00 Water,Injection,Sterile 10 Ml Vial IJ 01/09/22 23:59 DIRECTED PRN PFSH Active Problems Active Problems: Problem Status Onset Code Osteoarthritis of right knee M17.11 Sprain of deltoid ligament of left ankle S93.422A Posterior tibial tendon dysfunction, left M76.822 Left knee DJD M17.12 Medical History Medical History History of neck pain Hx of fibrocystic disease of breast Hypertension Ischial bursitis Bilateral Surgical History Surgical History (Updated 12/11/21 @ 06:15 by Ady Salmon) Hallux valgus (acquired), left foot History of bunionectomy of left great toe History of carpal tunnel release of both wrists History of repair of hiatal hernia Hx of colonoscopy Hx of hysterectomy Tobacco Smoking/Tobacco Use Status: Never Alcohol Alcohol Intake: current Alcohol intake frequency: a few times a month Substance Use Substance use: Never Substance use type: does not use Vital Signs and Lab Results Vital Signs Most Recent Vital Signs in EMR: Most Recent Vital Signs Temp Pulse Resp BP Pulse Ox 36.7 C 71 16 126/65 100 12/11/21 06:21 12/11/21 06:21 12/11/21 06:21 12/11/21 06:21 12/11/21 06:21 Lab Results Blood Type / Crossmatch: No Data to Display Complete Blood Count: White Blood Count 7.22 10^3/uL (4.4-10.8) 12/02/21 11:15 Red Blood Count 4.02 10^6/uL (3.93-5.22) 12/02/21 11:15 Hemoglobin 12.1 g/dL (11.2-15.7) 12/02/21 11:15 Hematocrit 37.3 % (36.0-46.0) 12/02/21 11:15 Platelet Count 229 10^3/uL (130-400) 12/02/21 11:15 Complete Metabolic Panel: Sodium 135 mmol/L (136-145) L 12/06/21 13:04 Potassium 4.7 mmol/L (3.5-5.1) 12/06/21 13:04 Chloride 102 mmol/L (98-107) 12/06/21 13:04 Carbon Dioxide 26.4 mmol/L (21.0-32.0) 12/06/21 13:04 BUN 24 mg/dL (7-18) H 12/06/21 13:04 Creatinine 1.4 mg/dL (0.55-1.02) H 12/06/21 13:04 Est GFR (CKD-EPI 2020) 39.48 (mL/min/1.73m2) 12/06/21 13:04 Calcium 10.1 mg/dL (8.5-10.1) 12/06/21 13:04 Glucose 112 mg/dL (74-106) H 12/06/21 13:04 Liver Function Panel: No Data to Display Coagulation Panel: No Data to Display Cardiac Panel: No Data to Display Arterial Blood Gas: No Data to Display Venous Blood Gas: No Data to Display Pancreas Panel: No Data to Display Thyroid Panel: No Data to Display Infectious Disease: No Data to Display Blood Cultures: No Data to Display Toxicology Panel: No Data to Display Imaging and Studies Imaging and Studies Study information below may be from another EMR and interpreted by another provider. Please see original notes in EMR for more complete details. Stress Test Summary: 03/04/2017 Impressions: Normal perfusion by [id number] Sestamibi [facility]. Summary: 1. Myocardial perfusion imaging: No myocardial perfusion defects noted. 2. No left ventricular regional motion abnormality. 3. Stress ECG conclusions: Parkinson treadmill score: 5. This score predicts a moderate risk of cardiac events. 4. Stress: The target heart rate was achieved. Anesthesia Assessment and Plan Anesthesia History Personal History: PONV Family History: No Family History of Anesthesia Complications Exercise Tolerance Exercise Tolerance: Metabolic Equivalents>4 Pertinent Negatives Pertinent Negatives: No Symptoms of GERD, No Major Cardiovascular Symptoms or Complaints, No Major Pulmonary Symptoms or Complaints and No History of CVA/TIA Cardiac & Pulmonary Exam Cardiac Exam: Normal S1/S2 Heart Sounds Pulmonary Exam: Clear Bilateral Breath Sounds Implantable Cardiac Device Does patient have a Pacemaker or an ICD?: No Airway Exam Known Difficult Airway: No Mallampati Class: 2 Mouth Opening: Normal (> 3cm) Thyromental Distance: Greater than 3 cm Neck Range of Motion: Full ROM Neck Circumference: Normal Teeth Condition: Normal Dentition ASA Classification ASA Score: ASA 2 Emergency Case?: No NPO Status NPO Status: NPO Clears >2 hours, Solids >8 hours Anesthesia Plan Resuscitation Status: Full Code Anesthesia Technique: Spinal Anesthesia Airway Planned: Natural Airway Pain Management: Surgeon and patient request nerve block Monitors Used: Standard Monitors
[2021-12-11] MEDS: Acetaminophen 500 MG TAB 1000 MG PO (06:50)
[2021-12-11] MEDS: Lactated Ringers 1,000 ML 80 ML IV (06:51)
[2021-12-11] MEDS: Gabapentin 300 MG CAP PO (06:51)
[2021-12-11] MEDS: Celecoxib 200 MG CAP 400 MG PO (06:51)
--- NOTE | 2021-12-11 07:17 | DSE_ITS ---
Date of service: 12/11/21 Time of Service: 12:21 DS: Diagnosis Discharge Diagnosis (1) Osteoarthritis of right knee: Status: Chronic Discharge Plan Disposition Patient Disposition: HOME Condition: Good Discharge Details Reason For Visit: Right knee DJD Admit Date/Time: 12/11/21 06:00 Admit Provider: Jeff Price Attending Provider: Jeff Price Primary Care Provider: Jackie Guerrero Home Meds and New Rx's Prescriptions: New acetaminophen 500 mg tablet 1,000 mg PO Q8H PRN Qty: 90 0RF Rx Instructions: Take two tablets up to every 8 hours as needed for pain aspirin 81 mg tablet,delayed release (DR/EC) 81 mg PO BID 30 Days Qty: 60 0RF docusate sodium [Colace] 100 mg capsule 100 mg PO BID Qty: 30 0RF pantoprazole 40 mg tablet,delayed release (DR/EC) 40 mg PO DAILY 30 Days Qty: 30 0RF dexamethasone 4 mg tablet 4 mg PO DAILY Qty: 2 0RF Rx Instructions: Take one tablet once daily for two days gabapentin 300 mg capsule 300 mg PO QHS Qty: 14 0RF Rx Instructions: Take one tablet at bedtime oxycodone 5 mg tablet 5 mg PO Q4H PRN (Reason: severe post-operative pain) Qty: 18 0RF Rx Instructions: Take one tablet up to every 4 hours as needed for severe pain meloxicam 15 mg tablet 15 mg PO DAILY Qty: 30 0RF Rx Instructions: Take one tablet once daily for pain and inflammation Continued Glucosamine Chondroitin 550-30-1 mg capsule 1 cap PO DAILY levothyroxine 25 mcg capsule 25 mcg PO DAILY Atorvastatin Calcium 20 MG tablet 20 mg PO HS lisinopril 40 MG tablet 40 mg PO DAILY metoprolol tartrate 25 MG tablet 25 mg PO DAILY amitriptyline 10 MG tablet 10 mg PO HS calcium carbonate-vitamin D3 1 EACH tablet 1 ea PO DAILY Centrum Silver Women 8 mg iron-400 mcg-300 mcg Tablet 1 tab PO DAILY nitroglycerin [Nitrostat] 0.4 mg Tablet, Sublingual 0.4 mg SUBLINGUAL Q5-15M PRN spironolactone 25 mg Tablet 25 mg PO DAILY Discontinued meloxicam 7.5 mg tablet DAILY ibuprofen 600 mg tablet 600 mg PO Q6H PRN (Reason: pain and inflamation) Qty: 40 0RF Discharge Instructions Additional Instructions: Total Knee Discharge Instructions Activity: The most important activity is to walk and to work on gentle motion (both flexion and extension). You should try to take short walks a few times a day. It is important that when resting you work on keeping the knee straight. Avoid putting a pillow behind the knee as this will encourage flexion. Work on range of motion exercises as provided by Physical Therapy. - Start outpatient physical therapy within 2 weeks. - You should wear the JONATAN hose on both legs for 2 weeks. You may remove these at night. You may also use any compression sock in place of the JONATAN hose. - Utilize [employer] to review exercises, see videos on exercises and obtain basic information pertaining to your surgery and your recovery. Dressing: Remove the Amrit wrap by 2 days after your surgery and put on the JONATAN stocking given to you from the hospital. Keep the surgical dressing (underneath the AMRIT wrap) in place for at least one week. After the first week it may be removed and replaced with light gauze and tape or nothing. The wound and dressing may get wet after 3 days but avoid soaking the dressing or otherwise it will need to be changed. Many people prefer covering the dressing with cling wrap (saran wrap) to minimize it from getting soaked. If it gets wet, just pat dry. If it starts to peel off then it will need to be changed. Medications: - You should take Tylenol and anti-inflammatory Meloxicam as your primary pain control medications. If the Meloxicam is too expensive or not covered, please call the office for another alternative (Advil/Ibuprofen or Naproxen/Aleve) - You have been prescribed a stronger pain medication Oxycodone for breakthrough pain, take as needed as prescribed. - You have also been prescribed a stomach acid reduction agent Pantoprozole to help reduce stomach acid and reflux. - You have been prescribed Gabapentin to take at night for restlessness and nerve pain. - You will be taking Aspirin 81mg twice a day for DVT prevention unless instructed otherwise. - You have also been prescribed Decadron to take to control post-operative nausea and pain. You will start this tomorrow. - If you have constipation you should take Colace (which has been prescribed) or Miralax (which is available [id number]). It takes most people 3-4 days to have a bowel movement. Follow-up: 2 weeks If you have any acute concerns or questions, please do not hesitate to contact the office at [phone]. You may contact Dr. Price with any questions after hours through the hospital at [phone] or on his cell phone at [phone]. Referrals: Jeff Price MD [ [facility] STAFF PHYSICIAN] - Activity:: Activity as Tolerated Equipment/Supplies:: Walker Diet:: As Tolerated Discharge Orders Discharge Orders: Discharge Order (Routine); Ordered 12/11/21 Ordered By: Jeff Price DS: Summary Time Spent with Patient providing and/or coordinating discharge services: Less than 30 minutes Status at Discharge Functional status at discharge: uses cane/walker Overall status at discharge: patient is progressing back to baseline Mental Status: mental status grossly normal Speech and Movement: speech and movement normal Mood: congruent mood Affect: normal affect Exam Psych Mental Status: mental status grossly normal Speech and Movement: speech and movement normal Mood: congruent mood Affect: normal affect DS: Data Vitals/I&O Vitals and I&O: Vital Signs Temperature 98.1 F 12/11/21 07:03 Pulse 75 12/11/21 07:03 Respiratory Rate 14 12/11/21 07:03 Blood Pressure 132/74 12/11/21 07:03 Blood Pressure Mean 93 12/11/21 07:03 Pulse Oximetry 100 12/11/21 07:03 Oxygen Delivery Method Room Air 12/11/21 07:03 Oxygen Flow Rate 0 12/11/21 07:03 Pain Level 0 12/11/21 07:03 Comment 12/11/21 07:03 Intake & Output 12/10/21 12/10/21 12/11/21 11:59 23:59 11:59 Weight 140 lb 0.002 oz 137 lb 9.095 oz PFSH All Active Problems Osteoarthritis of right knee (Chronic) Latest Depo-Medrol injection: 01/10/2021 Sprain of deltoid ligament of left ankle (Acute) Posterior tibial tendon dysfunction, left (Acute) Left knee DJD (Acute) Medical History History of neck pain Hx of fibrocystic disease of breast Hypertension Ischial bursitis Bilateral Surgical History (Updated 12/11/21 @ 06:15 by Ady Salmon) Hallux valgus (acquired), left foot History of bunionectomy of left great toe History of carpal tunnel release of both wrists History of repair of hiatal hernia Hx of colonoscopy Hx of hysterectomy Social History Smoking/Tobacco Use Status: Never Smoking risk assessment performed?: Yes Alcohol Intake: current Alcohol Intake frequency: a few times a month Drug use: Never Substance use type: does not use Current gender identity: female Do you feel safe at home: Yes Do you feel safe in your relationship?: Yes Additional Social history: lives alone
[2021-12-11] MEDS: ceFAZolin 2 GM/50 ML BAG IVPB (07:55)
--- NOTE | 2021-12-11 08:25 | W.ANESNERVE ---
Nerve Block Single Injection Procedure Date and Time Date Performed: 12/11/21 Procedure Start: 07:15 Location Where Procedure Performed Procedure Location: Day Surgery Unit Reason Performed: Postoperative Analgesia Requesting Provider: Jeff Price Timeout Performed Timeout Performed: Yes Monitoring Used ECG, Blood Pressure, SpO2 and See EMR for corresponding vital signs Sterility Sterility: Hand Hygiene, Surgical Cap, Surgical Mask, Sterile Gloves, Eye Protection and Chlorhexidine Sedation Given During Procedure Sedation Given (Indicate Dose Given): No Sedation given Patient Mental Status Patient Mental Status: Awake Nerve Block 1st Nerve Block: Laterality: Right Block Type: Adductor Canal Needle / Catheter Used: 100mm SonoPlex II Local Anesthetic Bolus (Indicate Dose Given): Lidocaine used for local infiltration of skin and Bupivacaine 0.25% Dose:: 20ML Additives (Indicate Dose Given): None Ultrasound: Sterile probe cover and gel used Ultrasound Image Saved?: Yes Nerve Stimulator: Not Used Paresthesia: None Procedure Tolerated: No Complications and Patient tolerated well Procedure Outcome: Successful Performed By: Keyla Root Supervised By: Pb Cheung
[2021-12-11] MEDS: ePHEDrine 25 MG/5 ML Syringe IVP ×3 (09:37→10:11)
--- NOTE | 2021-12-11 10:41 | W.ANESPOSTOP ---
Postoperative Evaluation Date, Time and Location Date Performed: 12/11/21 Time Performed: 10:41 Patient Location: Day Surgery Unit Vital Signs Most Recent Imported Vital Signs: Most Recent Vital Signs Temp Pulse Resp BP Pulse Ox 36.5 C 66 16 115/58 L 100 12/11/21 10:20 12/11/21 10:25 12/11/21 10:25 12/11/21 10:25 12/11/21 10:25 Pain Score Most Recent Pain Score: Most Recent Pain Score Pain Level 0 12/11/21 10:25 Assessment Mental Status: Awake (Alert & Oriented to Patient Baseline) Airway and Respiratory Function: Patent airway with normal (patient baseline) respiratory exam Cardiovascular Function: Hemodynamically Stable Hydration Status: Adequately Hydrated Nausea & Vomiting: No Nausea or Vomiting Pain: Pt. Denies Any Pain Peripheral Nerve Block: Other (adductor block preop, pt denies pain at this time)
--- NOTE | 2021-12-11 11:36 | IN_ITS ---
Date of service: 12/11/21 Time of Service: 11:36 PT Notes Visit Reasons: Right knee DJD Physical Therapy Inpatient Initial Evaluation Date: 12/11/2021 Referring Doctor: KASSANDRA Ryan PT Orders: PT CONSULT: S/P Ortho Surgery Precautions: Fall. Standard. Activity as tolerated. Patient Profile/Admitting Diagnosis: Patient is a 76-year-old female patient with degenerative joint disease of the R knee and is S/P R total knee arthroplasty on postoperative day 0. PMHX: All Active Problems?(Updated 10/14/21 @ 18:53 by No Gilman) Left knee DJD (Acute) Osteoarthritis of right knee (Chronic) Latest Depo-Medrol injection: 01/10/2021 Sprain of deltoid ligament of left ankle (Acute) Posterior tibial tendon dysfunction, left (Acute) Medical History?(Updated 10/14/21 @ 18:53 by No Gilman) History of neck pain Hx of fibrocystic disease of breast Hypertension Surgical History?(Updated 12/11/20 @ 10:26 by No Gilman) Hallux valgus (acquired), left foot History of carpal tunnel release of both wrists History of repair of hiatal hernia Hx of colonoscopy Hx of hysterectomy Social History/Home Situation: Lives alone in a private home with 1-2 steps to enter with a rail on the R going up. She has a flight of steps to her bedroom with rails on B sides. Equipment Owned/DME: None Subjective: Agreeable to PT consult. Denies headache, chest pain, and lightheadedness th roughout session. Objective: General Observation: Supine in stretcher. KRISTYN wrap to R knee. Cryocuff to R knee. Mental Status: Alert and oriented as to person, place, time, and purpose. Able to pay attention, focus, and respond appropriately. Pain: 2/10 pain in R popliteal area Vital Signs: WNl as closley monitored by nursing staff ROM: Right Lower Extremity: Hip flexion WFL. Hip abduction WFL. Knee flexion 0-about 100 degrees. Knee extension 100-0 degress. Ankle dorsiflexion WFL. Ankle plantarflexion WFL. Left Lower Extremity: Hip flexion WFL. Hip abduction WFL. Knee flexion WFL. Ankle dorsiflexion WFL. Ankle plantarflexion WFL. Strength: Right Lower Extremity: Hip flexors 4/5. Hip abductors 4/5. Knee flexors 3-/5. Knee extensors 3-/5. Ankle dorsiflexors 4-/5. Ankle plantarflexors 4/5. Left Lower Extremity: Hip flexors 5/5. Hip abductors 5/5. Knee flexors 5/5. Knee extensors 5/5. Ankle dorsiflexors 5/5. Ankle plantarflexors 5/5. Bed Mobility/Transfers: Supine to sit stand by assist Sit to stand contact guard assist Stand to sit stand by assist Bed to reclining chair with stand by assist Reclining chair to bed stand by assist Gait: Instructed patient with level surface ambulation of 150 feet requiring stand by assist. Step-to gait pattern. No report of increased pain with good quadriceps activation noted. Balance: Static Sitting: Normal Dynamic Sitting: Normal Static Standing: Fair Dynamic Standing: Fair Special Tests: Mobility Limitations Standardized Measure [facility] AM-PAC 6 clicks Basic Mobility Inpatient Short Form: Raw Score:24 CMS Score: 0% deficit Informed Consent/Education: Patient was instructed in purpose of PT consult and plan of care. Agreeable to proceed with established PT POC to achieve personal goals. Assessment: Patient presents with clinical signs and symptoms consistent with current/admitting diagnoses that have resulted to mobility limitations, gait instability, generalized weakness, and overall ADL decline as demonstrated by the following impairment level findings: 1. Decreased strength to R knee major muscle groups 2. Impaired /standing balance 3. Impaired activity tolerance 4. Limitation of joint range of motion in R knee Impairments are contributing to the following functional limitations: 1. Decline in bed mobility skills 2. Decline in transfer skills 3. Difficulty with ambulation without assistive device 4. Increased completion time for mobility ADL performance 5. Increased risk for falls 6. Difficulty with managing steps alone safely Patient is assessed as a 27120 moderate complexity based on the following: History: 76-year-old female with past medical history as indicated above Examination: Demonstrable impairment in strength, balance, and mobility level with underlying impairments and functional limitations as exhibited above as well as deficit score of 0% utilizing the [facility] Mobility Inpatient Short Form Presentation: Evolving Decision Makin moderate complexity Goals: N/A. PT evaluation and 1-2 treatment sessions only for functional mobility training using recommended AD and for HEP instruction. Plan of Care/Treatment Plan: N/A. PT evaluation and 1-2 treatment session only for functional mobility training using recommended AD and for HEP instruction. DISCHARGE RECOMMENDATIONS: [] Home with no services [] [] Home with services [specify] [X] Home with outpatient PT. Home when medically cleared by orthopedic surgeon. Will benefit from outpatient PT services in order to maximize functional mobility outcomes and facilitate independent community ambulation without an assistive device. [] SNF for continued rehabilitation [] [] [facility] [] [] SNF versus LTC based on ability to participate and progress [] TREATMENT CODE/TIME: 25629 x 20 minutes, 96048 x 13 minutes beginning at 11:36 AM. Thank you for the opportunity to participate in the care of this patient. Barb Whelan PT, DPT, CLT [facility] [place], [place]
--- NOTE | 2021-12-11 15:49 | W.PM.OP ---
Date of service: 12/11/21 Time of Service: 08:50 Operative Note Operative Note DATE OF PROCEDURE: 12/11/21 PRE-OP DIAGNOSIS: Right Knee Osteoarthritis POST-OP DIAGNOSIS: same PROCEDURE: Right Total Knee Replacement SURGEON: Jeff Price ELECTRIC METER INSPECTOR: No Gilman ANESTHESIA TYPE: Spinal Refer to Anesthesia Record ESTIMATED BLOOD LOSS: 150 PATHOLOGY: none sent TOURNIQUET TIME: 0 COMPLICATIONS: None Patient was transported to: PACU Patient's condition: stable Implants: 1. Depuy Attune Cementless Cruciate Retaining Femoral Component, Size 3 2. Depuy Attune Cementless Rotating Platform Tibial Component, Size 3 3. Depuy Attune 3x6 CR/RP Poly 4. Depuy Attune Patellar Component, Size 38 Indications: I have seen Lore in clinic for symptoms of knee arthritis, confirmed with radiographic findings. She has exhausted nonoperative methods and was having significant limitations in daily function and desired better function and less pain. I discussed the technical details of a knee replacement. I explained the risks of the procedure to include, but not limited to, bleeding, infection, pain, stiffness, fracture, damage to nerves and vessels, damage to muscles and tendons, loosening, need for repeat procedure, blood clot and cardiopulmonary demise. Despite these risks, Lore elected to proceed. Findings: There was significant signs of arthritis throughout the knee involving all 3 compartments. Procedure Description: Lore was greeted in the preoperative holding area where the correct side was identified and marked. The consent was reviewed with the patient and signed. The history and physical was updated. All questions were answered. Preoperative medications were administered: Acetaminophen 1000mg, Celebrex 400mg, and Gabapentin 300mg. An adductor canal block was then administered by the anesthesia team in the PACU. Lore was taken back to the operating room. A spinal anesthestic was then administered. The patient was placed into the supine position on the operating room table. A nonsterile tourniquet was placed high onto the leg but only used for cementing. Posts were placed for positioning during the procedure. All bony prominences were well padded. Prophylactic antibiotics in the form of Cefazolin were administered. 1g of Tranxemic Acid was given intravenously within 30 minutes of incision. The right leg was then prepped with Chloraprep and draped in a standard fashion with impervious stockinette. A second prep with Chloraprep was performed prior to application of Iodine impregnated skin protection. A timeout to confirm correct identity, side and site, procedure, allergies, anesthesia, and medical concerns was performed. With the knee in some flexion, a midline incision was made overlying the knee. Full thickness skin flaps were raised once the extensor mechanism was encountered. These were raised medially and laterally. Any bleeding was controlled with electrocautery. Once the extensor mechanism was fully exposed, a medial parapatellar arthrotomy was performed in a flexed position. All bleeding from the arthrotomy and the geniculate arteries was coagulated. A medial subperiosteal peel was performed with electrocautery to the midcoronal plane. The fat pad was removed while keeping the patellar tendon protected. The anterior distal femur synovium was removed for later visualization. The ACL and PCL were resected and the anterior horn of the lateral meniscus was transected. The knee was then flexed with the patella everted. Large osteophytes from the tibia were removed. Large osteophytes from the femur were removed. Using a step drill, and based on preoperative templating, the femoral canal was entered. This was done with a step drill without any difficulty. The intramedullary distal femoral cut guide was inserted, set to a 6 degree valgus cut and 8mm cut thickness. The distal femoral cut guide was then held in position and pinned. With the soft tissues protected, the distal cut was performed. This was passed over a few times to ensure a planar cut. I then turned attention to the tibia. The extramedullary guide was placed onto the leg. The distal aspect was slid medial to adjust for position of center of ankle and stay in line with shaft of the tibia. Approximately 3-5 degrees of posterior slope was kept in the proximal cutting guide. The center of the guide was aligned with the PCL. The stylus was used to assess cut thickness. The medial side, most involved side, was set for a 4mm cut. This was then held in position and pinned into place with 2 additional pins and a cross pin for stability. The medial and lateral collateral ligaments were protected and the cut was performed. With this completed, it was assessed and noted to be of appropriate dimensions. The guide was removed. A spacer block was inserted and the knee was brought into extension. The 6mm spacer block provided full extension, without hyperextension and with stability of both the medial and lateral collateral ligaments was assessed. The pins from the femur and the tibia were then removed. The distal femur was then sized. The anterior stylus was placed onto the lateral ridge of the anterior femur. This indicated a size 3 femur. The external rotation of the guide was adjusted to 0 degrees to match the epicondylar axis, perpendicular to Mir?s line. The 4-in-1 cutting guide was the placed. The posterior medial femur cut was evaluated and appeared of good thickness. The spacer block was inserted underneath the cutting guide and stability was confirmed in 90 degrees of flexion. An codi wing was used to confirm appropriate position of the anterior cut to avoid notching. This cutting guide was ensured to be flush on the cut surface and then pinned into place with headed pins. While protecting the soft tissues, quad tendon, and collateral ligaments, the anterior and posterior cuts were performed with a saw. The central two pins were removed and the posterior and anterior chamfers were cut next. The notch-cutting guide was placed. This was pinned to lateralize the femoral component as much as possible while keeping it flush on the cut surface. This was then pinned into position. A reciprocating saw was used to make the notch cut. A rasp smoothed the cut surfaces. The medial and lateral menisci were removed. A trial femoral component was then inserted, impacted down to the cut surfaces, and the lug holes were drilled. A provisional trial tibial component was placed and the knee was brought through range of motion. There was noted to be excellent extension and flexion. There was no significant instability. The patella was tracking without thumbs. A size 6mm polyethylene component provided the best range of motion and stability with less than 2mm gapping with medial and lateral stress and full extension without significant hyperextension. The tibial cut surface was fully exposed. The tibia was then sized as a 3. The tibia had been previously marked during trialing to correspond to the center of the tibial component to help with rotation. The trial was aligned to this jolanta, approximately rotated to the medial 1/3rd of the tibial tubercle. The trial was pinned into place. The tibia was prepared with a reamer and a keel punch and lug holes. The knee was then brought into extension and the patella was measured as 23mm. Using the patellar clamp and cut guide, this was resected to a flat surface with at least 13mm of thickness remaining. The size 38 patella fit the best. This was oriented and then clamped into position. The lugs were drilled. The trial components were removed. The final components were opened on the back table. The periosteal and capsular tissues, especially posteriorly, around the knee were then systematically injected with a periarticular cocktail consisting of 246mg of Ropivacaine, 0.5mg of Epinephrine, 0.08mg of Clonidine, and 30mg of Ketorolac, diluted to 100cc. On the back table, with the implants opened, the cement was mixed. One batch of high viscosity cement was prepared with vacuum assistance. After the cement was ready a small amount was placed on the cut surface of the patella and the patellar button was clamped into position and held. While the cement was hardening, the cementless knee components were placed. Starting with the tibial component, the tibia was subluxed anteriorly and the lug holes of the component were lined up. The tibia was then impacted with an impactor and mallet until the tibial component was in contact with the tibia. The final polyethylene component was inserted. Then, the femoral component was inserted. The lug holes were aligned and the component was impacted into position. The knee was irrigated with Surgiphor Betadine solution. This was allowed to sit in the knee for 3 minutes and then it was irrigated out with saline. After the cement had finally cured, approximately 15min, the clamp was removed from the patella and the knee was taken through range of motion. The patella was tracking with a no-thumbs technique. The capsule was then reapproximated with a No. 1 Vicryl at multiple locations. The capsule was finally closed with a No. 2 Stratafix, barbed suture. The second dosing of 1g TXA was started. Deep tissues were then reapproximated with 0 Vicryl and 2-0 Vicryl. The skin was closed with a running 3-0 Monocryl in a subcuticular fashion. This was reinforced with skin glue. A Mepilex silver dressing was applied along with a [id number] KRISTYN wrap. A CryoCuff was applied. Lore was transferred to the hospital bed without difficulty an suffering no apparent complication. She has a good prognosis. Physical therapy will start today and without restrictions, weight-bearing as tolerated. Aspirin 81mg BID will be used for DVT prophylaxis.
== END 2021-12-11 13:25 | disposition home or self-care (01) | DRG 470 ==
LOC: PDS 12:38 → DSU 12-12 11:06
PROVIDERS: PCP Family Medicine; Visit Provider Student in an Organized Health Care Education/Training Program
PROC: 0SRC0J9 Replacement of Right Knee Joint with Synthetic Substitute, Cemented, Open Approach (ICD-10-PCS; CPT 27447; principal; 2021-12-11 07:30)
DX: M17.11 Unilateral primary osteoarthritis, right knee (principal); I10 Essential (primary) hypertension; M70.72 Other bursitis of hip, left hip; M70.71 Other bursitis of hip, right hip
CPT/HCPCS: 27447; C1776; 76942; 97162; J0690; J1100; J2250; J2405; J2704

== ENCOUNTER 2021-12-27 09:28 | Outpatient (CLI) | payer OTHER, SELFPAY ==
--- NOTE | 2021-12-27 09:00 | DI.RAD_ITS ---
Exam(s) XR STANDING ALIGNMENT EXAM: XR STANDING ALIGNMENT CLINICAL HISTORY: 1ST POST OP R TKA. TECHNIQUE: 2D digital imaging was performed. COMPARISON: CR XR STANDING ALIGNMENT from 10/08/2020 FINDINGS: There has been interval placement of a right knee prosthesis appears satisfactory position. There is a moderate-advanced narrowing of the medial compartment of the opposite-left knee. There is chondrocalcinosis in the lateral compartment. Hips appear unremarkable. Ankles appear unremarkable. IMPRESSION: DATA REPOSITORY: RADIATION DOSE DELIVERED:
--- NOTE | 2021-12-27 09:00 | DI.RAD_ITS ---
Exam(s) XR KNEE RT 1V EXAM: XR KNEE RT 1V CLINICAL HISTORY: 1ST POST OP R TKA. TECHNIQUE: 2D digital imaging was performed. COMPARISON: CR XR KNEE RT 2V AP,LAT from 10/14/2021 FINDINGS: Single lateral view: Satisfactory position alignment of the components of the prosthesis. No fracture or loosening eviden t. IMPRESSION: DATA REPOSITORY: RADIATION DOSE DELIVERED:
== END 2021-12-27 09:29 | disposition home or self-care (01) ==
LOC: DIORS 09:49
PROVIDERS: PCP Family Medicine; Referring Provider Family Medicine; Visit Provider Student in an Organized Health Care Education/Training Program
DX: Z96.651 Presence of right artificial knee joint (principal); Z47.1 Aftercare following joint replacement surgery
CPT/HCPCS: 73560; 77073

== ENCOUNTER 2022-01-21 21:00 | Outpatient (REF) | payer OTHER, SELFPAY ==
[2022-01-23 10:32] LABS: Lyme Ab w Rflx to Lyme Confirm Negative (Negative)
[2022-01-24 22:36] LABS: Anaplasma phagocytophilum Negative (Negative); B. miyamotoi PCR Negative (Negative); Babesia divergens/MO-1 Negative (Negative); Babesia duncani Negative (Negative); Babesia microti Negative (Negative); Ehrlichia chaffeensis Negative (Negative); Ehrlichia ewingii/canis Negative (Negative); Ehrlichia muris eauclairensis Negative (Negative)
== END 2022-01-21 21:01 | disposition home or self-care (01) ==
LOC: NCHCN 21:00
PROVIDERS: PCP Family Medicine; Visit Provider Family Medicine
DX: M79.10 Myalgia, unspecified site (principal); R53.83 Other fatigue; W57.XXXA Bitten or stung by nonvenomous insect and other nonvenomous arthropods, initial encounter
CPT/HCPCS: 87798; 86618

== ENCOUNTER → 2022-01-24 10:44 | Outpatient (BNVA) | payer OTHER, SELFPAY | PROVIDERS: PCP Family Medicine; Referring Provider Family Medicine; Visit Provider Student in an Organized Health Care Education/Training Program | DX: Z47.1 Aftercare following joint replacement surgery (principal); Z96.651 Presence of right artificial knee joint ==

== ENCOUNTER 2022-03-03 14:01 | Outpatient (REF) | payer OTHER, SELFPAY ==
[2022-03-03 14:54] LABS: ALT 16 U/L (14-59); AST 17 U/L (15-37); Albumin 4.3 g/dL (3.4-5.0); Alkaline Phosphatase 104 U/L (46-116); Anion Gap 7.4 mmol/L (3-11); BUN 32 mg/dL (7-18); Bilirubin, Total 0.9 mg/dL (0.2-1.0); CO2 26.6 mmol/L (21.0-32.0); CREATININE 1.3 mg/dL (0.55-1.02); Calcium 10.1 mg/dL (8.5-10.1); Chloride 103 mmol/L (98-107); Estimated GFR 42.88 (mL/min/1.73m2); FREE T4 0.94 ng/dL (0.76-1.46); Glucose 117 mg/dL (74-106); Potassium 5.5 mmol/L (3.5-5.1); Sodium 137 mmol/L (136-145); TSH 2.18 uIU/mL (0.36-3.74); Total Protein 7.6 g/dL (6.4-8.2)
[2022-03-03 15:08] LABS: Calculated LDL 48 mg/dL (<100); Cholesterol 123 mg/dL (<200); HDL Cholesterol 50 mg/dL (40-60); Triglyceride 125 mg/dL (<150)
== END 2022-03-03 14:02 | disposition home or self-care (01) ==
LOC: NCHCN 14:01
PROVIDERS: PCP Family Medicine; Visit Provider Family Medicine
DX: E03.9 Hypothyroidism, unspecified (principal); E55.9 Vitamin D deficiency, unspecified; I10 Essential (primary) hypertension; E78.5 Hyperlipidemia, unspecified
CPT/HCPCS: 80053; 80061; 82306; 84439; 84443

== ENCOUNTER → 2022-03-17 15:19 | Outpatient (BNVA) | payer MEDICARE, SELFPAY | PROVIDERS: PCP Family Medicine; Visit Provider Student in an Organized Health Care Education/Training Program | DX: Z47.1 Aftercare following joint replacement surgery (principal); Z96.651 Presence of right artificial knee joint; M17.12 Unilateral primary osteoarthritis, left knee | CPT/HCPCS: 20610; J1040 ==

== ENCOUNTER 2022-05-22 01:42 | Outpatient (CLI) | payer MEDICARE, SELFPAY ==
--- NOTE | 2022-05-22 12:45 | DI.MAMMO_ITS ---
Exam(s) MAMMO SCREENING EXAM: MAMMO SCREENING CLINICAL HISTORY: SCREENING, Z12.31 TECHNIQUE: Mammograms were interpreted according to the usual protocol including computer analysis w [employer] CAD system, tomosynthesis and C-view imaging. COMPARISON: 2012 through 2020 FINDINGS: The breasts are composed of scattered fibroglandular densities, Breast Density category B. No suspicious masses or suspicious microcalcifications are seen. No skin thickening or abnormal axillary lymph nodes are seen. There has been no significant change from prior exams. IMPRESSION: BI-RADS Category 1, Negative mammogram Yearly screening mammography is recommended. Breast Density - Category B, scattered fibroglandular densities. A negative radiographic report should not delay biopsy if a dominant or clinically suspicious mass is present. Up to ten percent of cancers are not identified on mammography. A negative report may reinforce clinical impression. Adenosis and dense breasts may obscure an underlying neoplasm. False positive reports average 6 to 10%. Patient will receive a letter notifying them of these results.
== END 2022-05-22 02:02 ==
LOC: DI 01:44
PROVIDERS: PCP Family Medicine; Visit Provider Nurse Practitioner Family
DX: Z12.31 Encounter for screening mammogram for malignant neoplasm of breast (principal)
CPT/HCPCS: 77063; 77067

== ENCOUNTER 2022-10-18 14:48 | Emergency (ER) | payer MEDICARE, SELFPAY ==
[2022-10-18 14:52] VITALS: BP 142/66; PULSE 64; RESP 16; O2SAT 100
--- NOTE | 2022-10-18 14:52 | ED.GENADUL_ITS ---
Discharge Plan Disposition Patient Disposition: Home Discharge Details Clinical Impression: Hx of falling Primary Care Provider: Jackie Guerrero ED Provider: Huy Heredia Home Meds and New Rx's Prescriptions: New lidocaine [Lidoderm] 5 % adhesive patch,medicated 1 patch topical DAILY Qty: 15 0RF Rx Instructions: leave on most painful area for up to 12 hrs oxycodone 5 mg tablet 5 mg PO Q8H PRNQty: 5 0RF gabapentin 300 mg capsule 300 mg PO BID Qty: 10 0RF Continued Glucosamine Chondroitin 550-30-1 mg capsule 1 cap PO DAILY levothyroxine 25 mcg capsule 25 mcg PO DAILY Atorvastatin Calcium 20 MG tablet 20 mg PO HS lisinopril 40 MG tablet 40 mg PO DAILY metoprolol tartrate 25 MG tablet 25 mg PO DAILY meloxicam 7.5 mg tablet See Rx Instructions .ROUTE .COMPLEX Qty: 180 3RF Dose Instruction: TAKE 1 TABLET BY MOUTH TWICE DAILY Rx Instructions: TAKE 1 TABLET BY MOUTH TWICE DAILY amitriptyline 10 MG tablet 10 mg PO HS calcium carbonate-vitamin D3 1 EACH tablet 1 ea PO DAILY Centrum Silver Women 8 mg iron-400 mcg-300 mcg Tablet 1 tab PO DAILY acetaminophen 500 mg tablet 1,000 mg PO Q8H PRN Qty: 90 0RF Rx Instructions: Take two tablets up to every 8 hours as needed for pain dexamethasone 4 mg tablet 4 mg PO DAILY Qty: 2 0RF Rx Instructions: Take one tablet once daily for two days nitroglycerin [Nitrostat] 0.4 mg Tablet, Sublingual 0.4 mg SUBLINGUAL Q5-15M PRN spironolactone 25 mg Tablet 25 mg PO DAILY Discharge Instructions Additional Instructions: Please read all of the information that accompanies these instructions. You were seen in the emergency department for your chest pain. You are x-ray showed no sign of any rib fractures. Please schedule an appointment with your primary care provider later this week. Please return to the emergency department if develop worsening pain cannot eat or drink as result of nausea or vomiting or if you have any other concerns. Please use your incentive spirometry device 3 times every hour while awake for 3 breath. For your pain please take medications as follows: 1. Take acetaminophen (Tylenol), 1,000 mg (two 500 mg tabs) every 6 hours. You are also receiving a prescription for gabapentin and some numbing medicine which you should take. You are also receiving 5 tablets of narcotics which you should only use when you are not operating heavy machinery and not drinking alcohol nor driving. Discharge Data Discharge Date/Time-TO BE ENTERED AT DEPARTURE: 10/18/22 17:06 Medical Decision Making This is an overall very well-appearing normothermic and not tachycardic nor anticoagulant 76-year-old female with left anterior chest pain status post fall last night concerning for rib fractures. Primary survey is intact. Patient has reassuring shock index. Based on her reassuring exam and her lack of abdominal tenderness nausea and vomiting and her low mechanism of injury my suspicion for significant intra-abdominal injury is exceedingly low. As result I did not feel that the patient required a CT scan of her abdomen. Given limited mechanism of injury my suspicion for intrathoracic injury is exceedingly low. Equal breath sounds so my suspicion is low for pneumothorax. Furthermore patient has an oxygen saturation of 100% on room air. We will attempt multimodal pain control with Lidoderm patch, oxycodone, and gabapentin as patient has maxed out on acetaminophen and ibuprofen within the past 6 hours. Anticipate that if patient pulls adequate volumes on incentive spirometry and does not have a multiple rib fractures nor any displaced rib fractures that she will be appropriate for an empiric trial of expectant outpatient management. Given that her dizziness was not new or different and occurred with her tiredness and was similar to prior episodes I do not feel that she requires an evaluation for dizziness. She is having no persistent dizziness to suggest posterior circulation CVA. No syncope to suggest need for syncope evaluation. No black nor bloody stools to suggest GI bleed. No chest pain to suggest ACS. No neck pain to suggest benefit from cervical spinal CT. No head strike to suggest benefit from CT head. 3:15 PM Prior to analgesics, patient was able to pull 1000 cc on incentive spirometry. 4:40 PM Patient's chest x-ray showed no acute abnormalities. I checked her prescription drug monitoring program website and she had a single opiate prescription from nearly 12 months ago. We will discharge her with 5 tablets of oxycodone in addition to gabapentin with Lidoderm patches and recommendation to use aceta minophen. Will defer ibuprofen given age and use of lisinopril outpatient meloxicam and spironolactone. Will provide return indications including any worsening pain syncope and any fevers. We will proceed with empiric trial of expectant outpatient management. HPI General Date/Time Provider Initiated Documentation: 10/18/22 14:50 . HPI Narrative: This is a 76-year-old female arriving to the emergency department with her son via private vehicle in the setting of left anterior chest pain following a fall last night. Patient reports that she intermittently gets dizzy when she is tired. Patient reports that she was tired last night and lost her balance and fell forward into her dresser. She did not hit her head. She did not lose consciousness. She had some discomfort last night but was able to fall asleep. This morning she woke up with significant left sided anterior chest pain. She took 1 g of acetaminophen and 400 mg of ibuprofen at approximately noon. She has had trouble lifting her left arm as a result of the pain in her chest. She is not feeling short of breath. She had no preceding chest pain nausea nor vomiting. She has had no nausea nor vomiting this morning. She denies any recurrent dizziness. She did not hit her head nor lose consciousness. She does not have neck pain. Related Data Home Medications Medication Instructions Recorded Confirmed amitriptyline 10 mg tablet 10 mg PO HS 07/16/12 03/17/22 calcium carbonate 1,000 mg-vitamin 1 ea PO DAILY 07/23/12 03/17/22 D3 20 mcg (800 unit) tablet Atorvastatin Calcium 20 mg PO HS 08/31/17 03/17/22 lisinopril 40 mg tablet 40 mg PO DAILY 08/31/17 03/17/22 metoprolol tartrate 25 mg tablet 25 mg PO DAILY 08/31/17 03/17/22 nitroglycerin 0.4 mg sublingual 0.4 mg sublingual Q5-15M PRN 09/13/19 03/17/22 tablet (Nitrostat) spironolactone 25 mg tablet 25 mg PO DAILY 09/13/19 03/17/22 glucosamine sulf dipot 1 cap PO DAILY 12/11/20 03/17/22 chlr,msm,chond 550 mg-C 30 mg-nichelle 1 mg capsule (Glucosamine Chondroitin) levothyroxine 25 mcg capsule 25 mcg PO DAILY 12/11/20 03/17/22 acetaminophen 500 mg tablet 1,000 mg PO Q8H PRN pain #90 tabs 12/11/21 03/17/22 dexamethasone 4 mg tablet 4 mg PO DAILY #2 tabs 12/11/21 03/17/22 njxailfp-jxxh-ukyl 8 mg-folic 400 1 tab PO DAILY 12/11/21 03/17/22 mcg-K 50 mcg-lutein 300 mcg tablet (Centrum Silver Women) meloxicam 7.5 mg tablet See Rx Instructions .Route 02/26/22 03/17/22 .COMPLEX #180 tabs gabapentin 300 mg capsule 300 mg PO BID #10 caps 10/18/22 lidocaine 5 % topical patch 1 patch topical DAILY #15 ea 10/18/22 (Lidoderm) oxycodone 5 mg tablet 5 mg PO Q8H PRN #5 tabs 10/18/22 Previous Rx's Medication Instructions Recorded acetaminophen 500 mg tablet 1,000 mg PO Q8H PRN pain #90 tabs 12/11/21 dexamethasone 4 mg tablet 4 mg PO DAILY #2 tabs 12/11/21 meloxicam 7.5 mg tablet See Rx Instructions .Route 02/26/22 .COMPLEX #180 tabs gabapentin 300 mg capsule 300 mg PO BID #10 caps 10/18/22 lidocaine 5 % topical patch 1 patch topical DAILY #15 ea 10/18/22 (Lidoderm) oxycodone 5 mg tablet 5 mg PO Q8H PRN #5 tabs 10/18/22 Allergies Allergy/AdvReac Type Severity Reaction Status Date / Time Penicillins Allergy Severe Anaphylaxsi Verified 01/24/22 10:51 s Sulfa (Sulfonamide Allergy Intermediate Hives Verified 01/24/22 10:51 Antibiotics) General LYDIA: 2 PFSH All Active Problems (Updated 10/18/22 @ 16:39 by Huy Heredia MD) Hx of falling (Acute) History of total right knee replacement (Acute 12/11/21) Sprain of deltoid ligament of left ankle (Acute) Posterior tibial tendon dysfunction, left (Acute) Left knee DJD (Acute) depo medrol 03/17/22 Medical History History of neck pain Hx of fibrocystic disease of breast Hypertension Ischial bursitis Bilateral Surgical History Hallux valgus (acquired), left foot History of bunionectomy of left great toe History of carpal tunnel release of both wrists History of repair of hiatal hernia Hx of colonoscopy Hx of hysterectomy Social History Smoking/Tobacco Use Status: Never Smoking risk assessment performed?: Yes Alcohol Intake: current Alcohol Intake frequency: a few times a month Drug use: Never Substance use type: does not use Housing: house Current gender identity: female Do you feel safe at home: Yes Do you feel safe in your relationship?: Yes Additional Social history: lives alone Exam Narrative Exam Narrative: General: Well-appearing in no acute distress speaking in complete sentences. Head: Normocephalic, atraumatic. Eye: Extraocular eye movements intact. No conjunctival injection. No scleral icterus. Ear, nose, mouth, throat: Grossly normal inspection. Normal voice, handling secretions normally. Neck: Trachea midline. Cardiovascular: Well-perfused distal extremities. Regular rate and rhythm. Respiratory: Nonlabored respiration. Clear lungs bilaterally. Chest wall: Left anterior chest wall tenderness. No flail segments. No crepitance. No rash to chest. No ecchymoses. No lacerations. Gastrointestinal: Nondistended abdomen. Musculoskeletal: No edema. Moving all 4 extremities spontaneously. Skin: Normal for age and race, grossly normal temperature and turgor. No acute rash. Neurologic: Alert and appropriate, no apparent acute deficits. Psychiatric: Mood and manner are appropriate. Grooming and personal hygiene are appropriate.
--- NOTE | 2022-10-18 15:00 | DI.RAD_ITS ---
Exam(s) XR CHEST 2V PA LATERAL EXAM: XR CHEST 2V PA LATERAL CLINICAL HISTORY: Left anterior chest pain status post fall TECHNIQUE: 2D digital imaging was performed of the chest. Two images were obtained. PA and lateral views were obtained. COMPARISON: No exams were available for comparison FINDINGS: MEDIASTINUM: Normal. HEART: Normal. PULMONARY VASCULATURE: Normal. LUNGS: Clear. PLEURAL SPACE: No pleural effusion or pneumothorax. BONE:Within normal limits for the patient's age. If there is concern for rib injury, rib films may b e obtained for further evaluation. OTHER FINDINGS:Normal. IMPRESSION: No acute pulmonary findings. DATA REPOSITORY: RADIATION DOSE DELIVERED:
[2022-10-18 15:17] VITALS: TEMP 36.8
[2022-10-18] MEDS: oxyCODONE 5 MG TAB PO (15:18)
[2022-10-18] MEDS: Lidocaine 5% Patch 2 PATCH TP (15:19)
[2022-10-18] MEDS: Gabapentin 300 MG CAP PO (15:25)
--- NOTE | 2022-10-18 16:24 | DI.VRAD_ITS ---
PROCEDURE INFORMATION: Exam: XR Chest Exam date and time: 10/18/2022 3:51 PM Age: 76 years old Clinical indication: Other: Left anterior chest wall pain post fall TECHNIQUE: Imaging protocol: Radiologic exam of the chest. Views: 2 views. COMPARISON: No relevant prior studies available. FINDINGS: Lungs: Unremarkable. No consolidation. Pleural spaces: Unremarkable. No pleural effusion. No pneumothorax. Heart/Mediastinum: Unremarkable. No cardiomegaly. Bones/joints: Unremarkable. IMPRESSION: No evidence for acute abnormality in the chest. Dictated and Authenticated by: Flaquita Edwards MD. Ordering:RODO Son MD
[2022-10-18 17:03] VITALS: BP 133/94; PULSE 67; RESP 16; O2SAT 99
== END 2022-10-18 17:06 | disposition home or self-care (01) ==
PROVIDERS: Emergency Provider Emergency Medicine; PCP Family Medicine
DX: R07.9 Chest pain, unspecified (principal); W19.XXXA Unspecified fall, initial encounter
CPT/HCPCS: 99283; 71046; 99284

== ENCOUNTER 2022-10-29 17:05 | Outpatient (REF) | payer MEDICARE, SELFPAY ==
[2022-10-29 19:09] LABS: Anion Gap 6.8 mmol/L (3-11); BUN 31 mg/dL (7-18); CO2 27.2 mmol/L (21.0-32.0); CREATININE 1.3 mg/dL (0.55-1.02); Calcium 9.6 mg/dL (8.5-10.1); Calculated LDL 35 mg/dL (<100); Chloride 100 mmol/L (98-107); Cholesterol 104 mg/dL (<200); Estimated GFR 42.88 (mL/min/1.73m2); Glucose 111 mg/dL (74-106); HDL Cholesterol 49 mg/dL (40-60); Potassium 5.1 mmol/L (3.5-5.1); Sodium 134 mmol/L (136-145); Triglyceride 104 mg/dL (<150)
[2022-10-29 19:24] LABS: Hemoglobin A1C 6.1 % (<5.7)
== END 2022-10-29 17:06 | disposition home or self-care (01) ==
LOC: NCHCN 17:05
PROVIDERS: PCP Family Medicine; Visit Provider Family Medicine
DX: I10 Essential (primary) hypertension (principal); E78.5 Hyperlipidemia, unspecified; Z00.00 Encounter for general adult medical examination without abnormal findings
CPT/HCPCS: 80048; 80061; 83036

== ENCOUNTER 2022-11-07 14:48 | Outpatient (REF) | payer MEDICARE, SELFPAY ==
[2022-11-07 15:10] LABS: Bilirubin Negative (Negative); Blood Trace-lysed (Negative); Clarity Cloudy (Clear); Glucose Negative (Negative); Ketones Negative (Negative); Leukocyte Esterase Moderate (Negative); Nitrite Negative (Negative); Specific Gravity 1.025 (1.005-1.025); Urobilinogen 0.2 mg/dL (Up to 0.2); pH 5.5 (5-8)
[2022-11-07 15:17] LABS: Bacteria Few HPF (Negative); C & S Indicated? Yes; Casts Negative LPF (Negative); Crystals Negative HPF (Negative); Epithelial Cells Few HPF (Negative); Mucus Negative (Negative); RBC 0-2 HPF (0-2); WBC >50 HPF (0-5)
== END 2022-11-07 14:49 | disposition home or self-care (01) ==
LOC: NCHCN 14:48
PROVIDERS: PCP Family Medicine; Visit Provider Family Medicine
DX: R35.0 Frequency of micturition (principal); R82.79 Other abnormal findings on microbiological examination of urine
CPT/HCPCS: 87077; 81003; 81015; 87086; 87186

== ENCOUNTER 2022-12-11 11:29 | Outpatient (CLI) | payer MEDICARE, SELFPAY ==
--- NOTE | 2022-12-11 11:45 | DI.RAD_ITS ---
Exam(s) XR KNEE RT 2V AP,LAT EXAM: XR KNEE RT 2V AP,LAT CLINICAL HISTORY: ANNUAL F/U S/P R TKA. TECHNIQUE: 2D digital imaging was performed. Two images were obtained. AP and lateral views were ob tained. COMPARISON: CR XR KNEE RT 2V AP,LAT from 10/14/2021 CR XR KNEE RT 1V from 12/27/2021 CR XR STANDING ALIGNMENT from 12/27/2021 CR,XR XR CHEST 2V PA LATERAL from 10/18/2022 FINDINGS: BONES: There are stable post operative changes right total knee replacement present. No fracture or dislocation. JOINTS: The orthopedic hardware is in good position. There are new lucency seen around the orthopedi c hardware. There is a joint effusion. SOFT TISSUE: Normal. IMPRESSION: New lucency seen about the orthopedic hardware both the femoral and the tibial component. Consider l oosening. Small joint effusion. DATA REPOSITORY: RADIATION DOSE DELIVERED:
== END 2022-12-11 11:30 | disposition home or self-care (01) ==
LOC: DIORS 11:29
PROVIDERS: PCP Family Medicine; Referring Provider Family Medicine; Visit Provider Student in an Organized Health Care Education/Training Program
DX: Z96.651 Presence of right artificial knee joint (principal); M76.31 Iliotibial band syndrome, right leg; M17.12 Unilateral primary osteoarthritis, left knee
CPT/HCPCS: 20550; 73560; J1030

== ENCOUNTER → 2023-03-12 10:50 | Outpatient (BNVA) | payer MEDICARE, SELFPAY | PROVIDERS: PCP Family Medicine; Referring Provider Family Medicine; Visit Provider Student in an Organized Health Care Education/Training Program | DX: Z47.1 Aftercare following joint replacement surgery (principal); M76.31 Iliotibial band syndrome, right leg; Z96.651 Presence of right artificial knee joint | CPT/HCPCS: 20610; 99213 ==

== ENCOUNTER 2023-06-02 13:22 | Outpatient (REF) | payer MEDICARE, SELFPAY ==
[2023-06-03 14:09] LABS: Chlamydia Result Negative (Negative); GC Result Negative (Negative)
== END 2023-06-02 13:23 | disposition home or self-care (01) ==
LOC: NCHCN 13:22
PROVIDERS: PCP Family Medicine; Visit Provider Nurse Practitioner Family
DX: N89.8 Other specified noninflammatory disorders of vagina (principal); B96.89 Other specified bacterial agents as the cause of diseases classified elsewhere
CPT/HCPCS: 87491; 87591; 87480; 87510; 87660

== ENCOUNTER → 2023-06-11 11:07 | Outpatient (BNVA) | payer MEDICARE, SELFPAY | PROVIDERS: PCP Family Medicine; Referring Provider Family Medicine; Visit Provider Student in an Organized Health Care Education/Training Program | DX: Z47.1 Aftercare following joint replacement surgery (principal); M76.31 Iliotibial band syndrome, right leg; Z96.651 Presence of right artificial knee joint | CPT/HCPCS: 99213 ==

== ENCOUNTER → 2023-06-24 04:18 | Outpatient (CLI) | payer MEDICARE, SELFPAY ==
--- NOTE | 2023-06-24 14:55 | DI.CT_ITS ---
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 TECHNIQUE: Imaging Protocol: Axial computed tomography images with coronal and sagittal reformatted images were created and reviewed. CONTRAST MATERIAL: Intravenous: Omnipaque 350 Contrast volume:structured data in ml Contrast route:IV - COMPARISON: CR XR KNEE RT 2V AP,LAT from 12/11/2022 FINDINGS: Bones: There is no evidence of fracture. No abnormal lucency surrounding the components of the total knee prosthesis. No cellulitic or osteomyelitic changes are identified. No lytic or sclerotic lesions are identified. Joints: Total knee prosthesis creates artifact. Joint effusion.. Soft Tissues: Normal. IMPRESSION: Joint effusion. There is no visible evidence of loosening of the components of the prosthesis given artifact. RADIATION DOSE DELIVERED: 264.52mGy.cm Total DLP DATA REPOSITORY: All CT scans at this facility are submitted to the National Radiology Data Registry (NRDR) Dose Index Registry (DIR) with the [employer] ([employer]). RADIATION OPTIMIZATION: All CT scans at this facility use at least one of these dose optimization te chniques: automated exposure control; mA and/or kV adjustment per patient size (includes targeted exa ms where dose is matched to clinical indication); or iterative reconstruction.
== END ==
PROVIDERS: PCP Family Medicine; Visit Provider Student in an Organized Health Care Education/Training Program
DX: Z96.651 Presence of right artificial knee joint (principal); M76.31 Iliotibial band syndrome, right leg; M25.561 Pain in right knee
CPT/HCPCS: 73700

== ENCOUNTER 2023-07-15 13:32 | Outpatient (REF) | payer MEDICARE, SELFPAY ==
[2023-07-15 15:13] LABS: TSH (W/Ref FT4) 1.55 uIU/mL (0.36-3.74)
== END 2023-07-15 13:33 | disposition home or self-care (01) ==
LOC: NCHCN 13:32
PROVIDERS: PCP Family Medicine; Visit Provider Family Medicine
DX: E03.9 Hypothyroidism, unspecified (principal)
CPT/HCPCS: 84443

== ENCOUNTER 2023-08-24 11:39 | Outpatient (REF) | payer MEDICARE, SELFPAY | END 2023-08-24 11:40 | disposition home or self-care (01) | LOC: LBN 11:39 | PROVIDERS: PCP Family Medicine; Visit Provider Obstetrics & Gynecology | DX: N89.8 Other specified noninflammatory disorders of vagina (principal) | CPT/HCPCS: 87480; 87510; 87660 ==

== ENCOUNTER 2023-09-30 11:35 | Outpatient (REF) | payer MEDICARE, SELFPAY | END 2023-09-30 11:36 | disposition home or self-care (01) | LOC: LBN 11:35 | PROVIDERS: PCP Family Medicine; Visit Provider Obstetrics & Gynecology | DX: N76.0 Acute vaginitis | CPT/HCPCS: 87480; 87510; 87660 ==

== ENCOUNTER 2023-11-17 02:35 | Outpatient (CLI) | payer MEDICARE, SELFPAY ==
[2023-11-17 12:52] LABS: ALT 23 U/L (14-59); AST 17 U/L (15-37); Albumin 3.9 g/dL (3.4-5.0); Alkaline Phosphatase 104 U/L (46-116); Anion Gap 9.3 mmol/L (3-11); BUN 26 mg/dL (7-18); Bilirubin, Total 0.74 mg/dL (0.2-1.0); CO2 24.7 mmol/L (21.0-32.0); CREATININE 1.3 mg/dL (0.55-1.02); Calcium 9.8 mg/dL (8.5-10.1); Calculated LDL 37 mg/dL (<100); Chloride 102 mmol/L (98-107); Cholesterol 118 mg/dL (<200); Estimated GFR 42.62 (mL/min/1.73m2); Glucose 115 mg/dL (74-106); HDL Cholesterol 46 mg/dL (40-60); Potassium 5.3 mmol/L (3.5-5.1); Sodium 136 mmol/L (136-145); Total Protein 7.3 g/dL (6.4-8.2); Triglyceride 178 mg/dL (<150)
== END 2023-11-17 02:36 | disposition home or self-care (01) ==
LOC: LBO 02:35
PROVIDERS: PCP Family Medicine; Visit Provider Family Medicine
DX: I10 Essential (primary) hypertension (principal); E55.9 Vitamin D deficiency, unspecified
CPT/HCPCS: 36415; 80053; 80061; 82306

== ENCOUNTER 2023-12-15 01:21 | Outpatient (CLI) | payer MEDICARE, SELFPAY ==
--- NOTE | 2023-12-15 | DI.MAMMO_ITS ---
Exam(s) MAMMO SCREENING EXAM: MAMMO SCREENING CLINICAL HISTORY: SCREENING, Z12.31. TECHNIQUE: Bilateral full field digital CC and MLO mammographic images were obtained with 3D tomosyn thesis and utilizing computer aided detection (CAD). COMPARISON: Prior mammograms were reviewed. FINDINGS: There has been no significant change in the appearance and distribution of the fibroglandular tissue. No CAD designations. There are no new spiculated masses nor malignant appearing microcalcification groups. There is no significant architectural distortion nor skin thickening-retraction. IMPRESSION: No radiographic evidence of malignancy. BI-RADS Category 1 - Negative Breast Density - Category B - Scattered areas of fibroglandular density Breast density Category C or D implies that the patient has dense breast tissue. Dense breast tissue can make it harder to find cancer on a mammogram. Dense breast tissue is also associated with an incr eased risk of breast cancer. This information about the result of the mammogram report was provided to the patient to raise their awareness. Use this report when you speak with the patient about their risks for breast cancer, which includes their family history. At that time, you may recommend additional screening tests (Ultrasoun d or MRI) as these tests may add significant information. A negative radiographic report should not delay biopsy if a dominant or clinically suspicious mass is present. Up to ten percent of cancers are not identified on mammography. A negative report may reinforce clinical impression. Adenosis and dense breasts may obscure an underlying neoplasm. False positive reports average 6 to 10%. Patient will receive a letter notifying them of these results.
== END 2023-12-15 01:41 ==
LOC: DI 01:21
PROVIDERS: PCP Family Medicine; Visit Provider Family Medicine
DX: Z12.31 Encounter for screening mammogram for malignant neoplasm of breast (principal)
CPT/HCPCS: 77063; 77067

== ENCOUNTER 2024-02-01 15:34 | Outpatient (CLI) | payer MEDICARE, SELFPAY ==
--- NOTE | 2024-02-01 14:30 | DI.RAD_ITS ---
Exam(s) XR HAND LT COMPLETE EXAM: XR HAND LT COMPLETE CLINICAL HISTORY: left hand pain. TECHNIQUE: 2D digital imaging was performed. Three views. COMPARISON: CR LEFT HAND COMPLETE from 06/29/2011 CR LEFT INDEX FINGER from 10/24/2011 FINDINGS: BONES: No acute fracture is present. No bony destructive lesion is seen. JOINTS: No dislocation present. Moderate to severe narrowing of the distal interphalangeal joints g rade greatest at the 2nd and 3rd distal interphalangeal joints. There is periarticular spurring. Sm all adjacent calcifications. Narrowing of the 2nd and 3rd metacarpophalangeal joints and mild periar ticular spurring is also noted. Advanced degenerative changes are also present at 1st carpal metacar pal joint. SOFT TISSUE: Normal. IMPRESSION: Degenerative changes as mentioned above. DATA REPOSITORY: RADIATION DOSE DELIVERED:
== END 2024-02-01 15:35 | disposition home or self-care (01) ==
LOC: DIORS 15:37
PROVIDERS: PCP Family Medicine; Referring Provider Family Medicine; Visit Provider Physician Assistant
DX: M19.042 Primary osteoarthritis, left hand
CPT/HCPCS: 99213; 73130

== ENCOUNTER → 2024-02-29 14:02 | Outpatient (BNVA) | payer MEDICARE, SELFPAY | PROVIDERS: PCP Family Medicine; Referring Provider Family Medicine; Visit Provider Student in an Organized Health Care Education/Training Program | DX: M19.042 Primary osteoarthritis, left hand (principal) | CPT/HCPCS: 99213 ==

== ENCOUNTER 2024-03-02 04:18 | Outpatient (CLI) | payer MEDICARE, SELFPAY ==
[2024-03-02 12:03] LABS: ESR 7 mm/hr (0-30)
[2024-03-02 12:17] LABS: C-Reactive Protein 1.74 mg/dL (<or=0.5)
[2024-03-02 22:33] LABS: Rheumatoid Factor 10.5 IU/mL (<12.0)
[2024-03-03 14:59] LABS: ANA Interpretation Negative (Negative)
== END 2024-03-02 04:19 | disposition home or self-care (01) ==
LOC: LBO 04:18
PROVIDERS: PCP Family Medicine; Visit Provider Student in an Organized Health Care Education/Training Program
DX: M19.042 Primary osteoarthritis, left hand (principal)
CPT/HCPCS: 36415; 85652; 86038; 86140; 86431

== ENCOUNTER → 2024-09-29 13:33 | Outpatient (BNVA) | payer MEDICARE, SELFPAY | PROVIDERS: PCP Family Medicine; Referring Provider Family Medicine; Visit Provider Student in an Organized Health Care Education/Training Program | DX: M17.12 Unilateral primary osteoarthritis, left knee (principal); M76.31 Iliotibial band syndrome, right leg; M19.042 Primary osteoarthritis, left hand | CPT/HCPCS: 20610; J1010 ==

== ENCOUNTER 2024-11-30 09:42 | Outpatient (REF) | payer MEDICARE, SELFPAY ==
[2024-11-30 15:16] LABS: ALT 22 U/L (14-59); AST 14 U/L (15-37); Albumin 3.7 g/dL (3.4-5.0); Alkaline Phosphatase 107 U/L (46-116); Anion Gap 9.8 mmol/L (3-11); BUN 37 mg/dL (7-18); Bilirubin, Total 0.5 mg/dL (0.2-1.0); CO2 25.2 mmol/L (21.0-32.0); Calcium 10.0 mg/dL (8.5-10.1); Calculated LDL 57 mg/dL (<100); Chloride 104 mmol/L (98-107); Cholesterol 129 mg/dL (<200); Estimated GFR 38.75 (mL/min/1.73m2); Glucose 115 mg/dL (74-106); HDL Cholesterol 41 mg/dL (>or=50); Potassium 5.2 mmol/L (3.5-5.1); Sodium 139 mmol/L (136-145); Total Protein 6.6 g/dL (6.4-8.2); Triglyceride 155 mg/dL (<150)
[2024-12-07 15:02] LABS: 1,25-Dihydroxyvitamin D 12 pg/mL (18-78)
== END 2024-11-30 09:43 | disposition home or self-care (01) ==
LOC: NCHCN 09:42
PROVIDERS: PCP Family Medicine; Visit Provider Family Medicine
DX: E55.9 Vitamin D deficiency, unspecified (principal); I10 Essential (primary) hypertension; E78.5 Hyperlipidemia, unspecified
CPT/HCPCS: 80053; 80061; 82652

== ENCOUNTER → 2024-12-29 01:54 | Outpatient (CLI) | payer MEDICARE, SELFPAY ==
--- NOTE | 2024-12-29 | DI.MAMMO_ITS ---
Exam(s) MAMMO SCREENING EXAM: MAMMO SCREENING CLINICAL HISTORY: SCREENING, Z12.31 TECHNIQUE: Bilateral full field digital CC and MLO mammographic images were obtained with 3D tomosynthesis and utilizing computer aided detection (CAD). COMPARISON: Comparison is made with prior examinations. FINDINGS: Masses/Architectural Distortion: No suspicious masses or areas of architectural distortion are present. Microcalcifications: No suspicious pleomorphic-type are seen. Skin Thickening/Nipple Retraction: None. IMPRESSION: 1. No significant interval change with no specific features of malignancy noted. 2. Unless there is more urgent need, screening mammography is recommended, as per [employer] guidelines. BI-RADS Category 1 - Negative Breast Density - Category B - There are scattered areas of fibroglandular density. Breast density Category C or D implies that the patient has dense breast tissue. Dense breast tissue can make it harder to find cancer on a mammogram. Dense breast tissue is also associated with an increased risk of breast cancer. This information about the result of the mammogram report was provided to the patient to raise their awareness. Use this report when you speak with the patient about their risks for breast cancer, which includes their family history. At that time, you may recommend additional screening tests (Ultrasound or MRI) as these tests may add significant information. A negative radiographic report should not delay biopsy if a dominant or clinically suspicious mass is present. Up to ten percent of cancers are not identified on mammography. A negative report may reinforce clinical impression. Adenosis and dense breasts may obscure an underlying neoplasm. False positive reports average 6 to 10%. Patient will receive a letter notifying them of these results.
== END ==
LOC: DI 02:00
PROVIDERS: PCP Family Medicine; Visit Provider Family Medicine
DX: Z12.31 Encounter for screening mammogram for malignant neoplasm of breast (principal)
CPT/HCPCS: 77063; 77067